=== PATIENT | male | born 1940 | race Caucasian/White ===

== ENCOUNTER → 2020-12-04 | Outpatient (CLI) | payer MEDICARE, BC ==
--- NOTE | 2020-12-04 13:54 | CT ---
EXAMINATION TYPE: CT abdomen pelvis w con DATE OF EXAM: 12/04/2020 COMPARISON: CT March 06, 2014 HISTORY: prostate CA CT DLP: 813.2 mGycm, Automated Exposure Control for Dose Reduction was Utilized. CONTRAST: CT scan of the abdomen and pelvis is performed with oral and with IV Contrast, patient injected with 100 mL of Isovue 300. FINDINGS: LUNG BASES: Coronary artery calcification is present. New Linear scarring or atelectasis right lung b ase. LIVER/GB: No significant abnormality is appreciated. PANCREAS: No significant abnormality is seen. SPLEEN: No significant abnormality is seen. ADRENALS: No significant abnormality is seen. KIDNEYS: There is benign 2.0 cm thin-walled cyst upper pole level left kidney series 5 image 22 sligh tly increased in size from prior study. Symmetric cortical medullary uptake and excretion without hyd ronephrosis seen bilaterally. Occasional subcentimeter low dense lesions throughout both kidneys. Kurt dder not greatly distended with mild wall thickening greatest anterior superior aspect similar to tara or. BOWEL: Oral contrast was not reached terminal ileum. No suspicious small or large bowel dilatation is present. Prominent diverticulosis in the left and sigmoid colon is redemonstrated. PROSTATE/SEMINAL VESICLES: There are 3 gold therapy seeds seen in normal-sized prostate redemonstrat ed. Poor fat plane separation along inferior aspect of bladder seen similar to prior. LYMPH NODES: No new greater than 1cm abdominal or pelvic lymph nodes are appreciated. OSSEOUS STRUCTURES: New diffuse sclerotic lesion involving the T11 vertebra. New disc calcification T 10-T11 level. New Sclerotic focus in the inferior right L2 vertebra coronal image 64. New slightly ex pansile sclerotic focus right L3 transverse process origin axial image 36. Some ossific fusion L4-L5 level. Bridging osteophytes L4-L5 and L5-S1 level. Moderate disc space narrowing and vacuum disc phen omenon with moderate to severe spurring L2-L3 and L3-L4 levels. OTHER: [id number] calcified plaque of the aorta extends into branch vessels.. IMPRESSION: New sclerotic osseous metastatic disease as detailed above.
--- NOTE | 2020-12-04 16:47 | NM ---
EXAMINATION TYPE: NM bone scan whole body DATE OF EXAM: 12/04/2020 COMPARISON: CT scan 12/04/2020 HISTORY: Prostate cancer, bone metastases Delayed whole-body scanning was performed following the injection of 22 mCi Tc 99m MDP. Images acqui red 3 hours post injection. FINDINGS: Abnormal uptake is present at T11 level corresponding to the sclerotic focus seen on CT, there is als o abnormal uptake present at the L3 vertebral body posterior elements on the right corresponding to t he sclerotic focus seen in the CT scan. Underlying degenerative disc changes are also present. Soft t issue uptake is normal. There is uptake within the feet, ankles, knees, shoulders, elbows, wrists and hands, sternoclavicular joints consistent with degenerative change. Cervical spine uptake is likely degenerative. IMPRESSION: Metastatic disease.
== END | disposition home or self-care (01) ==
LOC: RADNMMAIN 10:29
PROVIDERS: ATTEND Urology
DX: C79.51 Secondary malignant neoplasm of bone (principal); C61 Malignant neoplasm of prostate
CPT/HCPCS: 82565; 84520; 74177; 78306; 36415; A9503; Q9967

== ENCOUNTER 2024-06-06 10:41 | Inpatient (IN) | payer MEDICARE, BC ==
--- NOTE | 2024-06-06 12:04 | ED ---
Recheck HPI - General Chief Complaint: Recheck/Abnormal Lab/Rx Stated Complaint: Abnormal labs Time Seen by Provider: 06/06/24 11:06 Source: patient, family, RN notes reviewed Mode of arrival: ambulatory Limitations: no limitations - History of Present Illness Initial Comments: This is an 84-year-old male who presents to the emergency department for abno rmal labs. Family took the patient to see his PCP due to the patient having increasing weakness leading to multiple falls. He had lab work done demonstrating critically low sodium and was instructed to come to the emergency department. Family states that they have been trending his sodium because it has been steadily decreasing, however it has never been this low. They were told that it was 118 yesterday. Denies any nausea, vomiting, chest pain, or shortness of breath. MD Complaint: abnormal lab - Related Data Home Medications Medication Instructions Recorded Confirmed No Known Home Medications 06/06/24 06/06/24 Allergies Allergy/AdvReac Type Severity Reaction Status Date / Time No Known Allergies Allergy Verified 06/06/24 12:03 Review of Systems ROS Statement: Those systems with pertinent positive or pertinent negative responses have been documented in the HPI. ROS Other: All systems not noted in ROS Statement are negative. Past Medical History Past Medical History: Cancer, Hypertension, Osteoarthritis (OA) Additional Past Medical History / Comment(s): low vitamin d, UTI,PROSTATE CANCER-NO SX-HAD 40 RADIATION TX, HEMORRHOIDS, DUPRETRYNS CONTRACTURES. History of Any Multi-Drug Resistant Organisms: None Reported Additional Past Surgical History / Comment(s): COLONCOSPY POLYPECTOMT(BENIGN), R T CATARACT REMOVED,WINSTON HANDS SX -TENDONS CUT D/T DUPRETRYNS CONTRACTURES Past Anesthesia/Blood Transfusion Reactions: No Reported Reaction Past Psychological History: No Psychological Hx Reported Smoking Status: Former smoker Past Alcohol Use History: Daily Past Drug Use History: None Reported - Past Family History Father Family Medical History: Liver Disease Additional Family Medical History / Comment(s): ALCOHOLIC Mother Family Medical History: Hypertension Additional Family Medical History / Comment(s): LIVES TO BE IN HER 90'S General Exam Limitations: no limitations General appearance: alert, in no apparent distress Head exam: Present: atraumatic, normocephalic, normal inspection Respiratory exam: Present: normal lung sounds bilaterally. Absent: respiratory distress, wheezes, rales, rhonchi, stridor Cardiovascular Exam: Present: regular rate, normal rhythm, normal heart sounds. Absent: systolic murmur, diastolic murmur, rubs, gallop, clicks Neurological exam: Present: alert, oriented X3, CN II-XII intact Psychiatric exam: Present: normal affect, normal mood Skin exam: Present: warm, dry, intact, normal color. Absent: rash Course Vital Signs 06/06/24 06/06/24 06/06/24 11:01 13:00 16:35 Temperature 97.5 F L Pulse Rate 66 86 67 Respiratory 18 18 18 Rate Blood Pressure 103/72 126/84 106/60 O2 Sat by Pulse 97 98 98 Oximetry Medical Decision Making - Medical Decision Making This is an 84 year old male who presents to the emergency department for hyponatremia. Was pt. sent in by a medical professional or institution? @ -His PCP Did you speak to anyone other than the patient for history? @ -No Did you review nursing and triage notes? @ -Yes, and I agree, it is accurate with regards to the patient's symptoms. Were old charts reviewed? @ -Sodium from yesterday which was 118. Differential Diagnosis? @ -Medications, renal failure, cirrhosis, CHF, hypothyroidism, this is not meant to be an all-inclusive list. EKG interpreted by me (3pts min.)? @ -EKG interpreted by me demonstrating the following: Sinus rhythm. Ventricular rate 69 bpm, DE interval 303 ms, QRS duration 93 ms, QTc 418 ms. X-rays interpreted by me (1pt min.)? @ -Chest x-ray obtained. My interpretation identifies a patchy nodular density in the left upper lobe. CT interpreted by me (1pt min.)? @ -Not obtained U/S interpreted by me (1pt. min.)? @ -Not obtained What testing was considered but not performed? (CT, X-rays, U/S, labs)? Why? @ -None What meds were considered but not given? Why? @ -None Did you discuss the management of the patient with other professionals? @ -Yes, Dr. Polk, who accepts the patient for admission. Did you reconcile home meds? @ -Yes Was smoking cessation discussed for >3mins.? @ -No Was critical care preformed (if so, how long)? @ -No Were there social determinants of health that impacted care today? How? (Homelessness, low income, unemployed, alcoholism, drug addiction, transportation, low edu. Level, literacy, decrease access to med. care, retirement, rehab)? @ -No Was there de-escalation of care discussed even if they declined? (Discuss DNR or withdrawal of care, Hospice)? @ -No What co-morbidities impacted this encounter? (DM, HTN, Smoking, COPD, CAD, Cancer, CVA, Hep., AIDS, mental health diagnosis, sleep apnea, morbid obesity)? @ -None Was patient admitted / discharged? @ -Admitted. Lab work demonstrates hyponatremia with a sodium of 121. This is mildly improved when compared with yesterday when it was 118. Renal function is also impaired when compared with prior. Creatinine 1.39 and GFR 46. Urinalysis negative for signs of infection. Chest x-ray demonstrates a patchy nodular density in the left upper lobe that could be related to an early infiltrate or pulmonary nodule. Patient denies any URI symptoms, will defer further testing and treatment to admitting team. He was given a liter bolus of IV fluids in the emergency department and started on maintenance IV fluids. Patient admitted to medicine for hyponatremia with nephrology listed as consult. Case discussed with ED attending, Dr. Dickson. Undiagnosed new problem with uncertain prognosis? @ -None Drug Therapy requiring intensive monitoring for toxicity (Heparin, Nitro, Insulin, Cardizem)? @ -None Were any procedures done? @ -None Diagnosis/symptom? @ -Hyponatremia, weakness, frequent falls Acute, or Chronic, or Acute on Chronic? @ -Acute Uncomplicated (without systemic symptoms) or Complicated (systemic symptoms)? @ -Complicated Side effects of treatment? @ -None Exacerbation, Progression, or Severe Exacerbation] @ -Not applicable Poses a threat to life or bodily function? @ -Yes - Lab Data Result diagrams: 06/06/24 11:31 06/06/24 11:31 Lab Results 06/06/24 06/06/24 06/06/24 Range/Units 11:31 11:31 12:03 WBC 4.4 (3.8-10.6) k/uL RBC 2.77 L (4.30-5.90) m/uL Hgb 9.7 L (13.0-17.5) gm/dL Hct 27.1 L (39.0-53.0) % MCV 97.7 (80.0-100.0) fL MCH 34.8 (25.0-35.0) pg MCHC 35.7 (31.0-37.0) g/dL RDW 12.0 (11.5-15.5) % Plt Count 73 L (150-450) k/uL MPV 11.8 Neutrophils % Not Reportable Neutrophils % (Manual) 80 % Lymphocytes % Not Reportable Lymphocytes % (Manual) 12 % Monocytes % Not Reportable Monocytes % (Manual) 6 % Eosinophils % Not Reportable Eosinophils % (Manual) 2 % Basophils % Not Reportable Neutrophils # Not Reportable Neutrophils # (Manual) 3.52 (1.3-7.7) k/uL Lymphocytes # Not Reportable Lymphocytes # (Manual) 0.53 L (1.0-4.8) k/uL Monocytes # Not Reportable Monocytes # (Manual) 0.26 (0-1.0) k/uL Eosinophils # Not Reportable Eosinophils # (Manual) 0.09 (0-0.7) k/uL Basophils # Not Reportable Nucleated RBCs 0 (0-0) /100 WBC Manual Slide Review Performed Sodium 121 L (137-145) mmol/L Potassium 4.7 (3.5-5.1) mmol/L Chloride 87 L (98-107) mmol/L Carbon Dioxide 25 (22-30) mmol/L Anion Gap 9 mmol/L BUN 33 H (9-20) mg/dL Creatinine 1.39 H (0.66-1.25) mg/dL Est GFR (CKD-EPI)AfAm 54 (>60 ml/min/1.73 sqM) Est GFR (CKD-EPI)NonAf 46 (>60 ml/min/1.73 sqM) Glucose 97 (74-99) mg/dL Calcium 9.6 (8.4-10.2) mg/dL Phosphorus 3.1 (2.5-4.5) mg/dL Magnesium 1.8 (1.6-2.3) mg/dL Total Bilirubin 1.5 H (0.2-1.3) mg/dL AST 35 (17-59) U/L ALT 25 (4-49) U/L Alkaline Phosphatase 65 (38-126) U/L NT-Pro-B Natriuret Pep 1100 pg/mL Total Protein 6.2 L (6.3-8.2) g/dL Albumin 4.1 (3.5-5.0) g/dL TSH 1.480 (0.465-4.680) mIU/L Cortisol 17.0 (3.1-22.4) UG/DL Urine Color Colorless Urine Appearance Clear (Clear) Urine pH 5.0 (5.0-8.0) Ur Specific [place] 1.010 (1.001-1.035) Urine Protein Negative (Negative) Urine Glucose (UA) Negative (Negative) Urine Ketones Negative (Negative) Urine Blood Negative (Negative) Urine Nitrite Negative (Negative) Urine Bilirubin Negative (Negative) Urine Urobilinogen <2.0 (<2.0) mg/dL Ur Leukocyte Esterase Negative (Negative) - Radiology Data Radiology results: report reviewed, image reviewed Disposition Clinical Impression: Hyponatremia, Weakness, Frequent falls Disposition: ADMITTED IP TO THIS HOSP
[2024-06-06 12:07] LABS: ALT 25 U/L (4-49); AST 35 U/L (17-59); African American GFR (CKD) 54 (>60 ml/min/1.73 sqM); Albumin 4.1 g/dL (3.5-5.0); Alkaline Phosphatase 65 U/L (38-126); Anion Gap 9 mmol/L; Blood Urea Nitrogen 33 mg/dL (9-20); Calcium 9.6 mg/dL (8.4-10.2); Carbon Dioxide 25 mmol/L (22-30); Chloride 87 mmol/L (98-107); Glucose 97 mg/dL (74-99); Magnesium 1.8 mg/dL (1.6-2.3); Non-African American GFR(CKD) 46 (>60 ml/min/1.73 sqM); Phosphorus 3.1 mg/dL (2.5-4.5); Potassium 4.7 mmol/L (3.5-5.1); Sodium 121 mmol/L (137-145); Total Bilirubin 1.5 mg/dL (0.2-1.3); Total Protein 6.2 g/dL (6.3-8.2)
[2024-06-06 12:12] LABS: Appearance,Urine Clear (Clear); Bilirubin,Urine Negative (Negative); Blood,Urine Negative (Negative); Color,Urine Colorless; Glucose,Urine (UA) Negative (Negative); Ketones,Urine Negative (Negative); Leukocyte Esterase,Urine Negative (Negative); Nitrite,Urine Negative (Negative); Protein,Urine Negative (Negative); Urobilinogen,Urine <2.0 mg/dL (<2.0)
[2024-06-06 12:15] LABS: NT-Pro-B-Type Natriuretic Pept 1100 pg/mL
[2024-06-06 12:17] LABS: HCT 27.1 % (39.0-53.0); HGB 9.7 gm/dL (13.0-17.5); MCH 34.8 pg (25.0-35.0); MCHC 35.7 g/dL (31.0-37.0); MCV 97.7 fL (80.0-100.0); Mean Platelet Volume 11.8; RBC 2.77 m/uL (4.30-5.90); WBC 4.4 k/uL (3.8-10.6)
--- NOTE | 2024-06-06 12:17 | XR ---
EXAMINATION TYPE: XR chest 2V DATE OF EXAM: 06/06/2024 COMPARISON: I don't 2016 TECHNIQUE: PA and lateral views submitted. HISTORY: Weakness FINDINGS: No pneumothorax Heart size normal and no overt failure. Osseous structures demonstrate hypertrophic a nd degenerative changes of the spine. Sclerotic density overlying the right humerus likely related to small bone infarct or bone island. Stable from prior exam. Tiny pleural effusion on the right or ple ural thickening. Healing right-sided rib fractures. Vague right apical 7 mm nodule. Irregular patchy density in the left upper lobe somewhat nodular in appearance. IMPRESSION: 1. Patchy nodular density in the left upper lobe could be related to early infiltrate or pulmonary no dule. Recommend follow-up CT scan. [facility], , 06/06/2024 12:14 PM
[2024-06-06] MEDS: SODIUM CHLORIDE 0.9% 1,000 ML IV STA (12:33)
[2024-06-06 12:56] LABS: Eosinophils # (M) 0.09 k/uL (0-0.7); Lymphocytes # (M) 0.53 k/uL (1.0-4.8); Monocytes # (M) 0.26 k/uL (0-1.0); Neutrophils # (M) 3.52 k/uL (1.3-7.7); Neutrophils % (M) 80 %; Nucleated Red Blood Cells 0 /100 WBC (0-0); Platelet Count 73 k/uL (150-450); Total Cells Counted 100
[2024-06-06] MEDS ORDERED: ONDANSETRON 4 MG/2 ML VIAL IVP PRN (14:43)
[2024-06-06] MEDS ORDERED: HYDROcodone/APAP 5-325MG 1 EACH TAB PO PRN (14:43)
[2024-06-06] MEDS ORDERED: NALOXONE 0.4 MG/ML 1 ML VIAL IV PRN (14:43)
[2024-06-06] MEDS ORDERED: MORPHINE SULFATE 4 MG/ML SYRINGE IV PRN (14:43)
[2024-06-06] MEDS: SODIUM CHLORIDE 0.9% 1,000 ML IV SCH (16:16)
[2024-06-07 08:54] LABS: ALT 22 U/L (10-49); AST 28 U/L (14-35); Albumin 3.5 g/dL (3.8-4.9); Albumin/Globulin Ratio 2.33 Ratio (1.60-3.17); Alkaline Phosphatase 62 U/L (41-126); BUN/Creat Ratio 24.22 Ratio (12.00-20.00); Blood Urea Nitrogen 21.8 mg/dL (9.0-27.0); Calcium 8.6 mg/dL (8.7-10.3); Carbon Dioxide 22.8 mmol/L (21.6-31.8); Chloride 96 mmol/L (96-109); Globulin 1.5 g/dL (1.6-3.3); Glucose 93 mg/dL (70-110); Potassium 4.2 mmol/L (3.5-5.5); Sodium 127 mmol/L (135-145); Total Bilirubin 0.8 mg/dL (0.3-1.2)
[2024-06-07] MEDS: PANTOPRAZOLE 40 MG/10 ML VIAL IV SCH (09:07)
[2024-06-07 09:10] LABS: Basophils # (A) 0.03 X 10*3/uL (0.00-0.10); Basophils % (A) 1.1 %; Eosinophils # (A) 0.07 X 10*3/uL (0.04-0.35); Eosinophils % (A) 2.7 %; HCT 23.1 % (39.6-50.0); HGB 8.2 g/dL (13.0-17.0); Immature Grans, Automated 0 %; Lymphocytes # (A) 0.26 X 10*3/uL (0.90-5.00); Lymphocytes % (A) 9.8 %; MCH 33.6 pg (27.0-32.0); MCHC 35.5 g/dL (32.0-37.0); MCV 94.7 FL (80.0-97.0); Mean Platelet Volume 14.5 FL (9.5-12.2); Monocytes # (A) 0.38 X 10*3/uL (0.20-1.00); Monocytes % (A) 14.4 %; NRBC Per 100 WBC 0 X 10*3/uL (0.00-0.01); Platelet Count 59 X 10*3/uL (140-440); RBC 2.44 X 10*6/uL (4.40-5.60); RDW 12.4 % (11.5-14.5); WBC 2.64 X 10*3/uL (4.50-10.00)
--- NOTE | 2024-06-07 12:22 | P.NPCON ---
History of Present Illness - Reason for Consult hyponatremia - History of Present Illness patient is an 84-year-old male who was admitted to the hospital with history of increased weakness and multiple falls at home. Patient denied any significant nausea vomiting or diarrhea. He did state that he has had decreased oral intake. Underlying history of prostate cancer status post radiation therapy. No history of fever chills chest pain or shortness of breath. Serum sodium was 121 in the ER. Blood pressure was on the lower side with systolic around 106. It is of mercury. Patient has been started on normal saline and sodium has improved to 127. Serum creatinine was 1.39 on admission and decreased to 0.9 today. Past Medical History Past Medical History: Cancer, Hypertension, Osteoarthritis (OA) Additional Past Medical History / Comment(s): low vitamin d, UTI,PROSTATE CANCER-NO SX-HAD 40 RADIATION [place], HEMORRHOIDS, DUPRETRYNS CONTRACTURES. History of Any Multi-Drug Resistant Organisms: None Reported Additional Past Surgical History / Comment(s): COLONCOSPY POLYPECTOMT(BENIGN), R T CATARACT REMOVED,WINSTON HANDS SX -TENDONS CUT D/T DUPRETRYNS CONTRACTURES Past Anesthesia/Blood Transfusion Reactions: No Reported Reaction Past Psychological History: No Psychological Hx Reported Smoking Status: Former smoker Past Alcohol Use History: Daily Past Drug Use History: None Reported - Past Family History Father Family Medical History: Liver Disease Additional Family Medical History / Comment(s): ALCOHOLIC Mother Family Medical History: Hypertension Additional Family Medical History / Comment(s): LIVES TO BE IN HER 90'S Medications and Allergies Home Medications Medication Instructions Recorded Confirmed Type No Known Home Medications 06/06/24 06/06/24 History Allergies Allergy/AdvReac Type Severity Reaction Status Date / Time No Known Allergies Allergy Verified 06/06/24 12:03 Physical Exam Vitals: Vital Signs Temp Pulse Pulse Resp BP BP Pulse Ox 06/07/24 08:00 90 16 06/07/24 07:08 98.2 F 90 16 106/59 94 L 06/07/24 01:25 98.1 F 59 L 16 92/59 100 06/06/24 20:00 98.0 F 95 16 115/67 96 06/06/24 17:53 97.5 F L 83 16 105/67 100 06/06/24 16:35 67 18 106/60 98 06/06/24 13:00 86 18 126/84 98 Intake and Output 06/06/24 06/07/24 06/07/24 22:59 06:59 14:59 Intake Total 240 590 336 Output Total 400 Balance 240 190 336 Intake: Oral 240 590 336 Output: Urine 400 Other: Voiding Method Toilet Toilet Urinal Urinal # Bowel Movements 2 Weight 59.874 kg patient is awake, comfortable, no acute distress. 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 Hypovolemic hyponatremia improving with normal saline. 2. Acute kidney injury secondary to volume depletion, improved with IV hydration. 3. History of prostatic cancer status post radiation therapy, bony metastases noted on CT in 2020 4. Anemia r/o iron deficiency Plan: Continue IVF Repeat labs in am Check iron profile Thank you for the consultation. We will continue to follow the patient with you during his hospitalization.
[2024-06-07 14:18] LABS: % Iron Saturation 32.6 (15.00-50.00)
--- NOTE | 2024-06-07 17:47 | P.HPIM ---
History of Present Illness H&P Date: 06/06/24 Gene Palm, is an 84-year-old male, who presented to [facility] emergency room, with a chief complaint of increasing weakness and multiple falls, patient was seen by his primary care physician, he had evidence of hyponatremia, he was sent to emergency room for further evaluation. He was evaluated in the emergency room vital examination on presentation revealed a temperature of 97.5 pulse 66 respiration 18 blood pressure 103/72 pulse ox 97% on room air Laboratory data revealed a white blood count of 4.4 hemoglobin 9.7 platelet count 73 sodium 121 BUN 33 creatinine 1.39 serum osmolality 268 urine osmolality 288 Testing in the emergency room revealed chest x-ray revealed patchy nodular density in the left upper lobe, EKG revealed sinus rhythm with first-degree AV block. Patient was admitted to medical floor for further evaluation and treatment Past medical history is significant for history of hypertension, history of hyperlipidemia, patient stated that he was taking blood pressure medications and cholesterol medications, however he recently decided with his primary care physician to stop all medications, and he stated that his numbers has been doing well without any pills at home. Patient also has a known history of prostate cancer he received radiation therapy, he also has a known history of osteoarthritis and hemorrhoids. On review of systems patient is alert and oriented x 3 in no apparent distress there is no fever or chills no headache or dizziness no chest pain no shortness of breath no cough no nausea or vomiting no abdominal pain no diarrhea no blood in the stools no burning with urination no frequency or urgency and no hematuria. Past Medical History Past Medical History: Cancer, Hypertension, Osteoarthritis (OA) Additional Past Medical History / Comment(s): low vitamin d, UTI,PROSTATE CANCER-NO SX-HAD 40 RADIATION [place], HEMORRHOIDS, DUPRETRYNS CONTRACTURES. History of Any Multi-Drug Resistant Organisms: None Reported Additional Past Surgical History / Comment(s): COLONCOSPY POLYPECTOMT(BENIGN), RT CATARACT REMOVED,WINSTON HANDS SX -TENDONS CUT D/T DUPRETRYNS CONTRACTURES Past Anesthesia/Blood Transfusion Reactions: No Reported Reaction Past Psychological History: No Psychological Hx Reported Smoking Status: Former smoker Past Alcohol Use History: Daily Past Drug Use History: None Reported - Past Family History Father Family Medical History: Liver Disease Additional Family Medical History / Comment(s): ALCOHOLIC Mother Family Medical History: Hypertension Additional Family Medical History / Comment(s): LIVES TO BE IN HER 90'S Medications and Allergies Home Medications Medication Instructions Recorded Confirmed Type No Known Home Medications 06/06/24 06/06/24 History Allergies Allergy/AdvReac Type Severity Reaction Status Date / Time No Known Allergies Allergy Verified 06/06/24 12:03 Physical Exam Vitals: Vital Signs Temp Pulse Resp BP Pulse Ox 06/06/24 16:35 67 18 106/60 98 06/06/24 11:01 97.5 F L 66 18 103/72 97 Intake and Output 06/06/24 06/06/24 06/06/24 06:59 14:59 22:59 Other: Weight 59.874 kg In general patient is alert and oriented x 3 in no distress HEENT head normocephalic and atraumatic Neck is supple no JVD no goiter no lymphadenopathy no carotid bruit Chest examination is clear to auscultation no crackles no wheezing Cardiac exam reveals regular heart sounds S1 and S2 no gallops no murmurs Abdomen is soft nontender no organomegaly with normal bowel sounds Extremity exam reveals no edema no cyanosis or clubbing Neurological examination reveals no gross focal deficits Results CBC & Chem 7: 06/07/24 06:04 06/07/24 06:04 Labs: Abnormal Lab Results - Last 24 Hours (Table) 06/06/24 06/06/24 Range/Units 11:31 11:31 RBC 2.77 L (4.30-5.90) m/uL Hgb 9.7 L (13.0-17.5) gm/dL Hct 27.1 L (39.0-53.0) % Plt Count 73 L (150-450) k/uL Lymphocytes # (Manual) 0.53 L (1.0-4.8) k/uL Sodium 121 L (137-145) mmol/L Chloride 87 L (98-107) mmol/L BUN 33 H (9-20) mg/dL Creatinine 1.39 H (0.66-1.25) mg/dL Total Bilirubin 1.5 H (0.2-1.3) mg/dL Total Protein 6.2 L (6.3-8.2) g/dL Assessment and Plan Plan: Generalized weakness with multiple falls at home Dehydration with acute kidney injury Severe hyponatremia Evidence of nodular density in the left upper lobe, pulmonary consultation requested Underlying history of prostate cancer status post radiation therapy Underlying history of hypertension not requiring any medications recently Underlying history of hyperlipidemia Underlying history of osteoarthritis At this time patient is admitted to medical floor He was started on IV normal saline in the emergency room For DVT prophylaxis I will order subcu Lovenox Nephrology consultation was requested I will add pulmonary consultation in regard to left upper lobe nodular density Will continue to follow closely
[2024-06-07] MEDS: ENOXAPARIN 40 MG/0.4 ML SYRINGE SQ SCH (18:42)
[2024-06-07] MEDS ORDERED: RX INFO: IV CONTRAST WAS GIVEN 1 EACH MISC MISCELLANE PRN (19:47)
--- NOTE | 2024-06-07 19:47 | P.CNPUL ---
History of Present Illness Consult date: 06/07/24 Reason for consult: abnormal CXR/CT History of present illness: 84-year-old male patient presented to the hospital because of generalized weakness and falls. In the emergency department, the patient was found to have hyponatremia and his sodium level was calculated to be at 122 and subsequently dropped down to 118. Based on that, the patient was seen by nephrology. The patient was started on normal saline and the most recent sodium level is at 127. Serum creatinine was 1.39, admission and dropped down to 0.9. As such, the patient was considered to have a hypovolemic hyponatremia improved with saline and the acute kidney injury is also improved. Is noted prostate cancer treated by radiation therapy in the past. He has history of chronic alcoholism and he was hospitalized back in 2016 for a parapneumonic effusion requiring a pigtail catheter and subsequent chest tube insertion. Back then, the microorganism was positive for Pseudomonas aeruginosa as cultures from the sputum. The chest x- ray was done in the emergency department showed a patchy nodular density in the left upper lobe and CAT scan of the chest was recommended. Patient is currently calm and comfortable nausea at rate of 75 cc an hour. He is on room air oxygen with a pulse ox of 97%. Afebrile hemodynamically stable. He is also known to have other comorbidities including hypertension hyperlipidemia and chronic anemia. Review of Systems Constitutional: Reports fatigue, Reports weakness Eyes: denies as per HPI, denies blurred vision, denies bulging eye, denies decreased vision, denies diplopia, denies discharge, denies dry eye, denies irritation, denies itching, denies pain, denies photophobia, denies loss of peripheral vision, denies loss of vision, denies tunnel vision/blind spots Ears: deny: decreased hearing, ear discharge, earache, tinnitus Ears, nose, mouth and throat: Reports as per HPI Breasts: absent: as per HPI, gynecomastia Cardiovascular: Reports decreased exercise tolerance Respiratory: Reports as per HPI Gastrointestinal: Reports as per HPI Genitourinary: Reports as per HPI Musculoskeletal: Reports as per HPI Musculoskeletal: absent: ankle pain, ankle stiffness, ankle swelling, as per HPI, elbow pain, elbow stiffness, elbow swelling, foot pain, foot stiffness, foot swelling, hand pain, hand stiffness, hand swelling, hip pain, hip st iffness, hip swelling, knee pain, knee stiffness, knee swelling, shoulder pain, shoulder stiffness, shoulder swelling, wrist pain, wrist stiffness, wrist swelling Integumentary: Reports as per HPI Neurological: Reports weakness Psychiatric: Reports as per HPI Endocrine: Reports fatigue Hematologic/Lymphatic: Reports as per HPI Allergic/Immunologic: Reports as per HPI Past Medical History Past Medical History: Cancer, Hypertension, Osteoarthritis (OA) Additional Past Medical History / Comment(s): low vitamin d, UTI,PROSTATE CANCER-NO SX-HAD 40 RADIATION TX, HEMORRHOIDS, DUPRETRYNS CONTRACTURES. History of Any Multi-Drug Resistant Organisms: None Reported Additional Past Surgical History / Comment(s): COLONCOSPY POLYPECTOMT(BENIGN), RT CATARACT REMOVED,WINSTON HANDS SX -TENDONS CUT D/T DUPRETRYNS CONTRACTURES Past Anesthesia/Blood Transfusion Reactions: No Reported Reaction Past Psychological History: No Psychological Hx Reported Smoking Status: Former smoker Past Alcohol Use History: Daily Past Drug Use History: None Reported - Past Family History Father Family Medical History: Liver Disease Additional Family Medical History / Comment(s): ALCOHOLIC Mother Family Medical History: Hypertension Additional Family Medical History / Comment(s): LIVES TO BE IN HER 90'S Medications and Allergies Home Medications Medication Instructions Recorded Confirmed Type No Known Home Medications 06/06/24 06/06/24 History Allergies Allergy/AdvReac Type Severity Reaction Status Date / Time No Known Allergies Allergy Verified 06/06/24 12:03 Physical Exam Vitals: Vital Signs Temp Pulse Resp BP Pulse Ox 06/07/24 13:07 97.4 F L 62 16 125/71 97 06/07/24 08:00 90 16 06/07/24 07:08 98.2 F 90 16 106/59 94 L 06/07/24 01:25 98.1 F 59 L 16 92/59 100 06/06/24 20:00 98.0 F 95 16 115/67 96 Intake and Output 06/07/24 06/07/24 06/07/24 06:59 14:59 22:59 Intake Total 874 085 9414 Output Total 400 Balance 058 964 0428 Intake: Oral 360 914 9480 Output: Urine 400 Other: Voiding Method Toilet Urinal # Voids 5 # Bowel Movements 2 3 Weight 59.874 kg The patient appeared well nourished and normally developed. Vital signs as documented. Head exam is unremarkable. No scleral icterus or corneal arcus noted. Neck is without jugular venous distension, thyromegaly, or carotid bruits. Carotid upstrokes are brisk bilaterally. Lungs are clear to auscultation and percussion. Cardiac exam reveals the PMI to be normally sized and situated. Rhythm is regular. First and second heart sounds normal. No murmurs, rubs or gallops. Abdominal exam reveals normal bowel sounds, no masses, no organomegaly and no aortic enlargement. Extremities are nonedematous and both femoral and pedal pulses are normal. Examination of the skin revealed no evidence of significant rashes, suspicious appearing nevi or other concerning lesions. Neurologically, the patient is awake and alert and the patient does not have any focal neurological deficit. Cranial nerves are essentially intact. Results - Laboratory Findings CBC and BMP: 06/07/24 06:04 06/07/24 06:04 ABG WBC 2.64 X 10*3/uL (4.50-10.00) L 06/07/24 06:04 RBC 2.44 X 10*6/uL (4.40-5.60) L 06/07/24 06:04 Hgb 8.2 g/dL (13.0-17.0) L 06/07/24 06:04 Hct 23.1 % (39.6-50.0) L 06/07/24 06:04 MCV 94.7 FL (80.0-97.0) 06/07/24 06:04 MCH 33.6 pg (27.0-32.0) H 06/07/24 06:04 MCHC 35.5 g/dL (32.0-37.0) 06/07/24 06:04 RDW 12.4 % (11.5-14.5) 06/07/24 06:04 Plt Count 59 X 10*3/uL (140-440) L 06/07/24 06:04 MPV 14.5 FL (9.5-12.2) H 06/07/24 06:04 Immature Gran % (Auto) 0 % 06/07/24 06:04 Absolute Nucleated RBC 0 % 06/07/24 06:04 Neutrophils % 72.0 % 06/07/24 06:04 Neutrophils % (Manual) 80 % 06/06/24 11:31 Lymphocytes % 9.8 % 06/07/24 06:04 Lymphocytes % (Manual) 12 % 06/06/24 11:31 Monocytes % 14.4 % 06/07/24 06:04 Monocytes % (Manual) 6 % 06/06/24 11:31 Eosinophils % 2.7 % 06/07/24 06:04 Eosinophils % (Manual) 2 % 06/06/24 11:31 Basophils % 1.1 % 06/07/24 06:04 Immature Gran # 0 X 10*3/uL (0.00-0.04) 06/07/24 06:04 Neutrophils # 1.90 X 10*3/uL (1.80-7.70) 06/07/24 06:04 Neutrophils # (Manual) 3.52 k/uL (1.3-7.7) 06/06/24 11:31 Lymphocytes # 0.26 X 10*3/uL (0.90-5.00) L 06/07/24 06:04 Lymphocytes # (Manual) 0.53 k/uL (1.0-4.8) L 06/06/24 11:31 Monocytes # 0.38 X 10*3/uL (0.20-1.00) 06/07/24 06:04 Monocytes # (Manual) 0.26 k/uL (0-1.0) 06/06/24 11:31 Eosinophils # 0.07 X 10*3/uL (0.04-0.35) 06/07/24 06:04 Eosinophils # (Manual) 0.09 k/uL (0-0.7) 06/06/24 11:31 Basophils # 0.03 X 10*3/uL (0.00-0.10) 06/07/24 06:04 Nucleated RBCs 0 /100 WBC (0-0) 06/06/24 11:31 NRBC/100 WBC Diff 0 X 10*3/uL (0.00-0.01) 06/07/24 06:04 Manual Slide Review Performed 06/06/24 11:31 Immature Plt Fraction 22.0 % (1.1-6.1) H 06/07/24 06:04 Sodium 127 mmol/L (135-145) L 06/07/24 06:04 Potassium 4.2 mmol/L (3.5-5.5) 06/07/24 06:04 Chloride 96 mmol/L (96-109) 06/07/24 06:04 Carbon Dioxide 22.8 mmol/L (21.6-31.8) 06/07/24 06:04 Anion Gap 8.20 mmol/L (4.00-12.00) 06/07/24 06:04 BUN 21.8 mg/dL (9.0-27.0) 06/07/24 06:04 Creatinine 0.9 mg/dL (0.6-1.5) 06/07/24 06:04 Est GFR (CKD-EPI) 84 (>=60) 06/07/24 06:04 Est GFR (CKD-EPI)AfAm 54 (>60 ml/min/1.73 sqM) 06/06/24 11:31 Est GFR (CKD-EPI)NonAf 46 (>60 ml/min/1.73 sqM) 06/06/24 11:31 BUN/Creatinine Ratio 24.22 Ratio (12.00-20.00) H 06/07/24 06:04 Glucose 93 mg/dL (70-110) 06/07/24 06:04 Osmolality 268 mOsm/kg (275-295) L 06/06/24 11:31 Calcium 8.6 mg/dL (8.7-10.3) L 06/07/24 06:04 Phosphorus 3.1 mg/dL (2.5-4.5) 06/06/24 11:31 Magnesium 1.8 mg/dL (1.6-2.3) 06/06/24 11:31 Iron 74 UG/DL (65-175) 06/07/24 06:04 TIBC 227 UG/DL (228-460) L 06/07/24 06:04 % Saturation 32.60 (15.00-50.00) 06/07/24 06:04 Transferrin 162.0 mg/dL (204.0-354.0) L 06/07/24 06:04 Total Bilirubin 0.8 mg/dL (0.3-1.2) 06/07/24 06:04 AST 28 U/L (14-35) 06/07/24 06:04 ALT 22 U/L (10-49) 06/07/24 06:04 Alkaline Phosphatase 62 U/L (41-126) 06/07/24 06:04 NT-Pro-B Natriuret Pep 1100 pg/mL 06/06/24 11:31 Total Protein 5.0 g/dL (6.2-8.2) L 06/07/24 06:04 Albumin 3.5 g/dL (3.8-4.9) L 06/07/24 06:04 Globulin 1.5 g/dL (1.6-3.3) L 06/07/24 06:04 Albumin/Globulin Ratio 2.33 Ratio (1.60-3.17) 06/07/24 06:04 TSH 1.480 mIU/L (0.465-4.680) 06/06/24 11:31 Cortisol 17.0 UG/DL (3.1-22.4) 06/06/24 11:31 Urine Color Colorless 06/06/24 12:03 Urine Appearance Clear (Clear) 06/06/24 12:03 Urine pH 5.0 (5.0-8.0) 06/06/24 12:03 Ur Specific [place] 1.010 (1.001-1.035) 06/06/24 12:03 Urine Protein Negative (Negative) 06/06/24 12:03 Urine Glucose (UA) Negative (Negative) 06/06/24 12:03 Urine Ketones Negative (Negative) 06/06/24 12:03 Urine Blood Negative (Negative) 06/06/24 12:03 Urine Nitrite Negative (Negative) 06/06/24 12:03 Urine Bilirubin Negative (Negative) 06/06/24 12:03 Urine Urobilinogen <2.0 mg/dL (<2.0) 06/06/24 12:03 Ur Leukocyte Esterase Negative (Negative) 06/06/24 12:03 Urine Osmolality 288 mOsm/kg (400-1100) L 06/06/24 12:03 Abnormal lab findings: Abnormal Labs 06/06/24 06/06/24 06/06/24 11:31 11:31 12:03 WBC RBC 2.77 L Hgb 9.7 L Hct 27.1 L MCH Plt Count 73 L MPV Lymphocytes # Lymphocytes # (Manual) 0.53 L Immature Plt Fraction Sodium 121 L Chloride 87 L BUN 33 H Creatinine 1.39 H BUN/Creatinine Ratio Osmolality 268 L Calcium TIBC Transferrin Total Bilirubin 1.5 H Total Protein 6.2 L Albumin Globulin Urine Osmolality 288 L 06/07/24 06/07/24 06/07/24 06:04 06:04 06:04 WBC 2.64 L RBC 2.44 L Hgb 8.2 L Hct 23.1 L MCH 33.6 H Plt Count 59 L MPV 14.5 H Lymphocytes # 0.26 L Lymphocytes # (Manual) Immature Plt Fraction 22.0 H Sodium 127 L Chloride BUN Creatinine BUN/Creatinine Ratio 24.22 H Osmolality Calcium 8.6 L TIBC 227 L Transferrin 162.0 L Total Bilirubin Total Protein 5.0 L Albumin 3.5 L Globulin 1.5 L Urine Osmolality - Diagnostic Findings Chest x-ray: image reviewed Assessment and Plan Plan: Nodular opacity/infiltrate in the left upper lobe that needs further investiga tion. Currently on room air oxygen. No signs of pneumonia Hypovolemic hyponatremia, improving sodium levels at 127 while receiving normal saline Prostate cancer. By radiation therapy Acute kidney injury, recovered Hypertension Hyperlipidemia Previous history of pneumonia with a parapneumonic effusion requiring drainage procedure back in 2016 (Pseudomonas) History of alcoholism Neutropenia Anemia of chronic disease Thrombocytopenia Plan Management of hyponatremia per nephrology, sodium is improving Renal function has normalized Obtain a contrast-enhanced CAT scan of the chest Will follow
--- NOTE | 2024-06-07 22:07 | CT ---
EXAMINATION TYPE: CT chest w con CT DLP: 347.5 mGycm, Automated exposure control for dose reduction was used. DATE OF EXAM: 06/07/2024 9:49 PM COMPARISON: Chest radiograph from same day. Multiple CTs of the chest with most recent on . CLINICAL INDICATION: Male, 84 years old with history of history of mass ; PHH, history of mass TECHNIQUE: Multiple axial images were obtained through the chest. Sagittal and coronal reformats were created for review. MIP was performed on a separate workstation. Contrast used:100ml mL of Isovue 300 with IV Contrast (None if empty) Oral contrast used: (None if empty) FINDINGS: LUNGS/ PLEURA: Left lower lobe 12 mm pulmonary nodule not seen on prior in 2016.. No focal consolida tion, pneumothorax or pleural effusion. The changes. Mild streaky edema in the lung bases. AIRWAY: Patent and unremarkable. HEART: Size within normal limits. Coronary artery atherosclerosis. Aortic valve calcifications presen t. MEDIASTINUM: No gross evidence of adenopathy. VASCULATURE: No aortic aneurysm. No filling defect in the pulmonary arterial vasculature to suggest pulmonary embolus. No evidence for aneurysm or dissection MUSCULOSKELETAL: No acute osseous abnormalities complete sclerosis of the T12 vertebral body which stanley s progressed from 12/04/2020 exam. SOFT TISSUES/LYMPH NODES: Unremarkable. LOWER NECK: No significant findings. UPPER ABDOMEN: No significant findings. IMPRESSION: Left lower lobe 12 mm pulmonary nodule given history of mass lesions concerning for metastatic diseas e. Additionally there is complete sclerosis of the vertebral body at T12. Not seen on prior on 021. Further workup with PET/CT may be of benefit. [facility], , 06/07/2024 10:05 PM
--- NOTE | 2024-06-08 10:38 | P.PN ---
Subjective Progress Note Date: 06/08/24 Gene Palm, is an 84-year-old male, who presented to [facility] emergency room, with a chief complaint of increasing weakness and multiple falls, patient was seen by his primary care physician, he had evidence of hyponatremia, he was sent to emergency room for further evaluation. He was evaluated in the emergency room vital examination on presentation revealed a temperature of 97.5 pulse 66 respiration 18 blood pressure 103/72 pulse ox 97% on room air Laboratory data revealed a white blood count of 4.4 hemoglobin 9.7 platelet count 73 sodium 121 BUN 33 creatinine 1.39 serum osmolality 268 urine osmolality 288 Testing in the emergency room revealed chest x-ray revealed patchy nodular density in the left upper lobe, EKG revealed sinus rhythm with first-degree AV block. Patient was admitted to medical floor for further evaluation and treatment Past medical history is significant for history of hypertension, history of hyperlipidemia, patient stated that he was taking blood pressure medications and cholesterol medications, however he recently decided with his primary care physician to stop all medications, and he stated that his numbers has been doing well without any pills at home. Patient also has a known history of prostate cancer he received radiation therapy, he also has a known history of osteoarthritis and hemorrhoids. On review of systems patient is alert and oriented x 3 in no apparent distress there is no fever or chills no headache or dizziness no chest pain no shortness of breath no cough no nausea or vomiting no abdominal pain no diarrhea no blood in the stools no burning with urination no frequency or urgency and no hematuria. On 06/08/2024 patient is alert and oriented x 3. CT scan was completed yesterday awaiting pulmonary review. Patient also noted to have hematuria that patient reports is new for him. Will consult urology services and order ultrasound of bladder and kidneys. Patient daughter also on phone during exam requesting that patient continue to stay in hospital until workup is completed. Awaiting lab work. Patient denies any chest pain or shortness of breath. Patient denies nausea vomiting or diarrhea. Patient denies any urinary burning or frequency. Current vital signs temp 98.0, heart 64, respiratory rate 16, b lood pressure 123/74 with pulse ox of 100% on room air Objective - Vital Signs Vital signs: Vital Signs Temp 98.0 F 06/08/24 07:11 Pulse 64 06/08/24 07:11 Resp 16 06/08/24 07:11 BP 123/74 06/08/24 07:11 Pulse Ox 100 06/08/24 07:11 FiO2 Intake & Output 06/07/24 06/08/24 06/08/24 18:59 06:59 18:59 Intake Total 1774 600 Output Total 500 Balance 1774 100 Weight 59.874 kg Intake: IV 10 Invasive Line 1 10 Oral 1774 590 Output: Urine 500 Other: Voiding Method Toilet Toilet Urinal Urinal # Voids 5 3 # Bowel Movements 3 - Exam In general patient is alert and oriented x 3 in no distress HEENT head normocephalic and atraumatic Neck is supple no JVD no goiter no lymphadenopathy no carotid bruit Chest examination is clear to auscultation no crackles no wheezing Cardiac exam reveals regular heart sounds S1 and S2 no gallops no murmurs Abdomen is soft nontender no organomegaly with normal bowel sounds Extremity exam reveals no edema no cyanosis or clubbing Neurological examination reveals no gross focal deficits - Labs CBC & Chem 7: 06/07/24 06:04 06/07/24 06:04 Labs: Abnormal Lab Results - Last 24 Hours (Table) 06/07/24 Range/Units 06:04 TIBC 227 L (228-460) UG/DL Transferrin 162.0 L (204.0-354.0) mg/dL Assessment and Plan Plan: Generalized weakness with multiple falls at home Dehydration with acute kidney injury Severe hyponatremia Hematuria. Urology services consulted ultrasound ordered Evidence of nodular density in the left upper lobe, pulmonary consultation requested Underlying history of prostate cancer status post radiation therapy Underlying history of hypertension not requiring any medications recently Underlying history of hyperlipidemia Underlying history of osteoarthritis At this time patient is admitted to medical floor He was started on IV normal saline in the emergency room For DVT prophylaxis I will order subcu Lovenox Nephrology consultation was requested I will add pulmonary consultation in regard to left upper lobe nodular density Will continue to follow closely
--- NOTE | 2024-06-08 11:00 | P.GSCN ---
History of Present Illness Consult date: 06/08/24 History of present illness: 84-year-old gentleman in the hospital with falls and weakness. He has hyponatremia. He is also anemic. We're asked to see the patient because apparently there has been hematuria and he has a history of prostate cancer status post radiation therapy. Patient urine is clear on analysis. He is anemic. There are no PSAs on the chart.upon interviewing the patient he states that he does have a history of prostate cancer. He is treated by Dr.Kamer saleem 10 years ago. He had radiation therapy at [facility]. He now follows with in our office for LHRH shots. He states that he is due for one any time soon. He states that he thinks his last PSA is around 5 a. He has had hematuria in the past but not until the most recent void. As mentioned above his initial urine was clear. He denies dysuria frequency. uniquely states that he thinks his hematuria is due to what he eats. Review of Systems All systems: negative - Constitutional Denies fever, Denies weight loss - EENT Eyes: denies blurred vision Ears, nose, mouth and throat: Denies dysphagia - Cardiovascular Denies chest pain, Denies shortness of breath - Respiratory Denies cough, Denies 7 - Gastrointestinal Reports as per HPI - Genitourinary Denies dysuria, Denies hematuria - Integumentary Denies rash, Denies unusual bruising - Neurological Denies headaches, Denies syncope - Hematologic/Lymphatic Denies easy bleeding, Denies easy bruising Past Medical History Past Medical History: Cancer, Hypertension, Osteoarthritis (OA) Additional Past Medical History / Comment(s): low vitamin d, UTI,PROSTATE CANCER-NO SX-HAD 40 RADIATION TX, HEMORRHOIDS, DUPRETRYNS CONTRACTURES. History of Any Multi-Drug Resistant Organisms: None Reported Additional Past Surgical History / Comment(s): COLONCOSPY POLYPECTOMT(BENIGN), R T CATARACT REMOVED,WINSTON HANDS SX -TENDONS CUT D/T DUPRETRYNS CONTRACTURES Past Anesthesia/Blood Transfusion Reactions: No Reported Reaction Past Psychological History: No Psychological Hx Reported Smoking Status: Former smoker Past Alcohol Use History: Daily Past Drug Use History: None Reported - Past Family History Father Family Medical History: Liver Disease Additional Family Medical History / Comment(s): ALCOHOLIC Mother Family Medical History: Hypertension Additional Family Medical History / Comment(s): LIVES TO BE IN HER 90'S Medications and Allergies Home Medications Medication Instructions Recorded Confirmed Type No Known Home Medications 06/06/24 06/06/24 History Allergies Allergy/AdvReac Type Severity Reaction Status Date / Time No Known Allergies Allergy Verified 06/06/24 12:03 Surgical - Exam Vital Signs Temp Pulse Resp BP Pulse Ox 97.5 F L 66 18 103/72 97 06/06/24 11:01 06/06/24 11:01 06/06/24 11:01 06/06/24 11:01 06/06/24 11:01 - General well developed, well nourished, no distress - Eyes normal ocular movement, no icteric - ENT no hearing loss, no congestion - Neck no masses, trachea midline - Respiratory normal respiratory effort, clear to auscultation - Abdomen Abdomen: soft, non tender, no guarding, no rigid, no rebound - Integumentary no rash, no abnormal pigmentation - Neurologic no disoriented, no combative - Psychiatric oriented to time, oriented to person, oriented to place, speech is normal, memory intact Results - Labs 06/07/24 06:04 06/07/24 06:04 Abnormal Lab Results - Last 24 Hours (Table) 06/07/24 Range/Units 06:04 TIBC 227 L (228-460) UG/DL Transferrin 162.0 L (204.0-354.0) mg/dL Assessment and Plan Assessment: impression: Anemia is not related to the gross hematuria. Gross hematuria at last urine void. No evidence of infection. Prostate cancers status post radiation therapy on present LHRH therapy. Recommendations: The urologic standpoint amount of blood is not significantly to do any immediate evaluation. He should have a cystoscopy at the time of his next LHRH treatment in the near future at our office. Time with Patient: Greater than 30
[2024-06-08 11:06] LABS: ALT 28 U/L (10-49); AST 33 U/L (14-35); Albumin/Globulin Ratio 2.11 Ratio (1.60-3.17); Alkaline Phosphatase 69 U/L (41-126); BUN/Creat Ratio 17.62 Ratio (12.00-20.00); Blood Urea Nitrogen 14.1 mg/dL (9.0-27.0); Calcium 8.8 mg/dL (8.7-10.3); Carbon Dioxide 22.4 mmol/L (21.6-31.8); Chloride 96 mmol/L (96-109); Globulin 1.9 g/dL (1.6-3.3); Glucose 92 mg/dL (70-110); Potassium 3.9 mmol/L (3.5-5.5); Sodium 128 mmol/L (135-145); Total Protein 5.9 g/dL (6.2-8.2)
--- NOTE | 2024-06-08 11:31 | US ---
EXAMINATION TYPE: US kidneys/renal and bladder DATE OF EXAM: 06/08/2024 COMPARISON: CT CLINICAL INDICATION: Male, 84 years old with history of Hematuria; Recent hematuria, pt has h/o prost ate CA and is currently on radiation TECHNIQUE: Grayscale and color Doppler imaging of the bilateral kidneys and urinary bladder: FINDINGS: EXAM MEASUREMENTS: Right Kidney: 10.7 x 4.6 x 5.0 cm Left Kidney: 9.1 x 4.8 x 4.5 cm Right Kidney: No hydronephrosis or masses seen Left Kidney: Limited views due to overlying bowel content- no evidence of hydro Bladder: wnl Bilateral Jets seen: No There is no evidence for hydronephrosis at this point in time. No nephrolithiasis is seen. No belen s are identified. The urinary bladder is anechoic. Renal cortical thickness and echogenicity maintai stephanie. No bladder calculi.. IMPRESSION: No hydronephrosis or nephrolithiasis. [facility], , 06/08/2024 11:29 AM
[2024-06-08 11:35] LABS: Basophils # (A) 0.06 X 10*3/uL (0.00-0.10); Basophils % (A) 1.5 %; Eosinophils # (A) 0.13 X 10*3/uL (0.04-0.35); Eosinophils % (A) 3.4 %; HCT 27.4 % (39.6-50.0); HGB 9.6 g/dL (13.0-17.0); Immature Platelet Fraction 19.7 % (1.1-6.1); Lymphocytes # (A) 0.35 X 10*3/uL (0.90-5.00); MCH 34.4 pg (27.0-32.0); MCV 98.2 FL (80.0-97.0); Mean Platelet Volume 14.8 FL (9.5-12.2); Monocytes # (A) 0.45 X 10*3/uL (0.20-1.00); Monocytes % (A) 11.6 %; NRBC Per 100 WBC 0 X 10*3/uL (0.00-0.01); Neutrophils # (A) 2.88 X 10*3/uL (1.80-7.70); Neutrophils % (A) 74.2 %; Platelet Count 67 X 10*3/uL (140-440); RBC 2.79 X 10*6/uL (4.40-5.60); RDW 12.5 % (11.5-14.5); WBC 3.88 X 10*3/uL (4.50-10.00)
--- NOTE | 2024-06-08 13:15 | P.PN ---
Subjective patient is seen for follow-up for hyponatremia. Currently maintained on normal saline and serum sodium has improved to 128. No significant complaints. Renal function has improved with creatinine down to 0.8 mg/dL. Objective - Vital Signs Vital signs: Vital Signs Temp 98.2 F 06/08/24 12:47 Pulse 67 06/08/24 12:47 Resp 17 06/08/24 12:47 BP 113/75 06/08/24 12:47 Pulse Ox 98 06/08/24 12:47 FiO2 Intake & Output 06/07/24 06/08/24 06/08/24 18:59 06:59 18:59 Intake Total 1774 600 Output Total 500 Balance 1774 100 Weight 59.874 kg Intake: IV 10 Invasive Line 1 10 Oral 1774 590 Output: Urine 500 Other: Voiding Method Toilet Toilet Urinal Urinal # Voids 5 3 # Bowel Movements 3 - Exam patient is awake, comfortable, no acute distress. Examination of the heart S1 and S2 Examination of the lungs bilateral breath sounds are heard Abdomen is soft nontender Examination of lower extremity shows no significant edema COOKER TENDER exam grossly intact - Labs CBC & Chem 7: 06/08/24 05:33 06/08/24 05:33 Labs: Abnormal Lab Results - Last 24 Hours (Table) 06/07/24 06/08/24 06/08/24 Range/Units 06:04 05:33 05:33 WBC 3.88 L (4.50-10.00) X 10*3/uL RBC 2.79 L (4.40-5.60) X 10*6/uL Hgb 9.6 L (13.0-17.0) g/dL Hct 27.4 L (39.6-50.0) % MCV 98.2 H (80.0-97.0) FL MCH 34.4 H (27.0-32.0) pg Plt Count 67 L (140-440) X 10*3/uL MPV 14.8 H (9.5-12.2) FL Lymphocytes # 0.35 L (0.90-5.00) X 10*3/uL Immature Plt Fraction 19.7 H (1.1-6.1) % Sodium 128 L (135-145) mmol/L TIBC 227 L (228-460) UG/DL Transferrin 162.0 L (204.0-354.0) mg/dL Total Protein 5.9 L (6.2-8.2) g/dL Assessment and Plan Assessment: 1. Hypovolemic hyponatremia improving with normal saline. 2. Acute kidney injury secondary to volume depletion, improved with IV hydratio n. 3. History of prostatic cancer status post radiation therapy, bony metastases noted on CT in 2020 4. Anemia , iron replete Plan: Continue IVF Repeat labs in am sodium chloride tab 1
[2024-06-08] MEDS: SODIUM CHLORIDE TAB 1 GM TAB PO STA (14:09)
--- NOTE | 2024-06-08 14:28 | P.PN ---
Subjective Progress Note Date: 06/08/24 84-year-old male patient presented to the hospital because of generalized weakness and falls. In the emergency department, the patient was found to have hyponatremia and his sodium level was calculated to be at 122 and subsequently dropped down to 118. Based on that, the patient was seen by nephrology. The patient was started on normal saline and the most recent sodium level is at 127. Serum creatinine was 1.39, admission and dropped down to 0.9. As such, the patient was considered to have a hypovolemic hyponatremia improved with saline and the acute kidney injury is also improved. Is noted prostate cancer treated by radiation therapy in the past. He has history of chronic alcoholism and he was hospitalized back in 2016 for a parapneumonic effusion requiring a pigtail catheter and subsequent chest tube insertion. Back then, the microorganism was positive for Pseudomonas aeruginosa as cultures from the sputum. The chest x- ray was done in the emergency department showed a patchy nodular density in the left upper lobe and CAT scan of the chest was recommended. Patient is currently calm and comfortable nausea at rate of 75 cc an hour. He is on room air oxygen with a pulse ox of 97%. Afebrile hemodynamically stable. He is also known to have other comorbidities including hypertension hyperlipidemia and chronic anemia. On 06/08/2024, the patient is being seen for a follow-up. Noted the patient sodium level is improving and is currently up to 128. Renal function is also im proved and the creatinine is down to 0.8. The patient has no specific complaints. The patient remains on room air oxygen with a pulse ox of 99%. He is afebrile. Based on the chest x-ray findings, a CAT scan of the chest was obtained and I reviewed the CAT scan of the chest and the patient is a 12 mm pulmonary nodule in the left lower lobe. No airspace disease. No consolidation. No pleural effusion. Some atelectatic changes lung base bilaterally. Based on his previous history of prostatic cancer and smoking, this nodule needs to be further followed up on outpatient basis. A PET/CT may be also useful to assess the metabolic activity of this left lower lobe pulmonary nodule. Objective - Vital Signs Vital signs: Vital Signs Temp 98.0 F 06/08/24 07:11 Pulse 64 06/08/24 07:11 Resp 16 06/08/24 07:11 BP 123/74 06/08/24 07:11 Pulse Ox 100 06/08/24 07:11 FiO2 Intake & Output 06/07/24 06/08/24 06/08/24 18:59 06:59 18:59 Intake Total 1774 600 Output Total 500 Balance 1774 100 Weight 59.874 kg Intake: IV 10 Invasive Line 1 10 Oral 1774 590 Output: Urine 500 Other: Voiding Method Toilet Toilet Urinal Urinal # Voids 5 3 # Bowel Movements 3 - Exam The patient appeared well nourished and normally developed. Vital signs as documented. Head exam is unremarkable. No scleral icterus or corneal arcus noted. Neck is without jugular venous distension, thyromegaly, or carotid bruits. Carotid upstrokes are brisk bilaterally. Lungs are clear to auscultation and percussion. Cardiac exam reveals the PMI to be normally sized and situated. Rhythm is regular. First and second heart sounds normal. No murmurs, rubs or gallops. Abdominal exam reveals normal bowel sounds, no masses, no organomegaly and no aortic enlargement. Extremities are nonedematous and both femoral and pedal pulses are normal. Examination of the skin revealed no evidence of significant rashes, suspicious appearing nevi or other concerning lesions. Neurologically, the patient is awake and alert and the patient does not have any focal neurological deficit. Cranial nerves are essentially intact. Results - Labs CBC & Chem 7: 06/08/24 05:33 06/08/24 05:33 Labs: Abnormal Lab Results - Last 24 Hours (Table) 06/07/24 06/08/24 06/08/24 Range/Units 06:04 05:33 05:33 WBC 3.88 L (4.50-10.00) X 10*3/uL RBC 2.79 L (4.40-5.60) X 10*6/uL Hgb 9.6 L (13.0-17.0) g/dL Hct 27.4 L (39.6-50.0) % MCV 98.2 H (80.0-97.0) FL MCH 34.4 H (27.0-32.0) pg Plt Count 67 L (140-440) X 10*3/uL MPV 14.8 H (9.5-12.2) FL Lymphocytes # 0.35 L (0.90-5.00) X 10*3/uL Immature Plt Fraction 19.7 H (1.1-6.1) % Sodium 128 L (135-145) mmol/L TIBC 227 L (228-460) UG/DL Transferrin 162.0 L (204.0-354.0) mg/dL Total Protein 5.9 L (6.2-8.2) g/dL Assessment and Plan Plan: Pulmonary nodule, left lower lobe, 12 mm, rule out round atelectasis versus primary lung cancer versus metastasis. The patient is neck smoker. The patient is known to have history of prostate cancer. Hypovolemic hyponatremia, improving sodium levels at 129 Prostate cancer. By radiation therapy Acute kidney injury, recovered Hypertension Hyperlipidemia Previous history of pneumonia with a parapneumonic effusion requiring drainage procedure back in 2016 (Pseudomonas) History of alcoholism Neutropenia Anemia of chronic disease Thrombocytopenia Plan Management of hyponatremia per nephrology, sodium is improving Renal function has normalized CAT scan of the chest was reviewed. Recommend outpatient follow-up including a PET/CT and biopsy if needed. Will follow
[2024-06-09 10:50] LABS: HCT 22.7 % (39.6-50.0); HGB 7.9 g/dL (13.0-17.0); Immature Platelet Fraction 16.5 % (1.1-6.1); MCH 34.2 pg (27.0-32.0); MCHC 34.8 g/dL (32.0-37.0); MCV 98.3 FL (80.0-97.0); Mean Platelet Volume 14.8 FL (9.5-12.2); NRBC Per 100 WBC 0 X 10*3/uL (0.00-0.01); Platelet Count 51 X 10*3/uL (140-440); RBC 2.31 X 10*6/uL (4.40-5.60); RDW 12.7 % (11.5-14.5); WBC 2.53 X 10*3/uL (4.50-10.00)
[2024-06-09 10:51] LABS: Basophils # (A) 0.02 X 10*3/uL (0.00-0.10); Basophils % (A) 0.8 %; Eosinophils # (A) 0.09 X 10*3/uL (0.04-0.35); Eosinophils % (A) 3.6 %; Lymphocytes # (A) 0.21 X 10*3/uL (0.90-5.00); Lymphocytes % (A) 8.3 %; Monocytes # (A) 0.33 X 10*3/uL (0.20-1.00); Neutrophils # (A) 1.87 X 10*3/uL (1.80-7.70); Neutrophils % (A) 73.9 %
[2024-06-09 12:02] LABS: ALT 24 U/L (10-49); AST 28 U/L (14-35); Albumin 3.4 g/dL (3.8-4.9); Albumin/Globulin Ratio 2.27 Ratio (1.60-3.17); Alkaline Phosphatase 55 U/L (41-126); BUN/Creat Ratio 12.12 Ratio (12.00-20.00); Blood Urea Nitrogen 9.7 mg/dL (9.0-27.0); Calcium 8.5 mg/dL (8.7-10.3); Carbon Dioxide 23.7 mmol/L (21.6-31.8); Chloride 98 mmol/L (96-109); Globulin 1.5 g/dL (1.6-3.3); Glucose 87 mg/dL (70-110); Sodium 128 mmol/L (135-145); Total Bilirubin 0.9 mg/dL (0.3-1.2); Total Protein 4.9 g/dL (6.2-8.2)
--- NOTE | 2024-06-09 14:03 | P.PN ---
Subjective Progress Note Date: 06/09/24 Gene Palm, is an 84-year-old male, who presented to [facility] emergency room, with a chief complaint of increasing weakness and multiple falls, patient was seen by his primary care physician, he had evidence of hyponatremia, he was sent to emergency room for further evaluation. He was evaluated in the emergency room vital examination on presentation revealed a temperature of 97.5 pulse 66 respiration 18 blood pressure 103/72 pulse ox 97% on room air Laboratory data revealed a white blood count of 4.4 hemoglobin 9.7 platelet count 73 sodium 121 BUN 33 creatinine 1.39 serum osmolality 268 urine osmolality 288 Testing in the emergency room revealed chest x-ray revealed patchy nodular density in the left upper lobe, EKG revealed sinus rhythm with first-degree AV block. Patient was admitted to medical floor for further evaluation and treatment Past medical history is significant for history of hypertension, history of hyperlipidemia, patient stated that he was taking blood pressure medications and cholesterol medications, however he recently decided with his primary care physician to stop all medications, and he stated that his numbers has been doing well without any pills at home. Patient also has a known history of prostate cancer he received radiation therapy, he also has a known history of osteoarthritis and hemorrhoids. On review of systems patient is alert and oriented x 3 in no apparent distress there is no fever or chills no headache or dizziness no chest pain no shortness of breath no cough no nausea or vomiting no abdominal pain no diarrhea no blood in the stools no burning with urination no frequency or urgency and no hematuria. On 06/08/2024 patient is alert and oriented x 3. CT scan was completed yesterday awaiting pulmonary review. Patient also noted to have hematuria that patient reports is new for him. Will consult urology services and order ultrasound of bladder and kidneys. Patient daughter also on phone during exam requesting that patient continue to stay in hospital until workup is completed. Awaiting lab work. Patient denies any chest pain or shortness of breath. Patient denies nausea vomiting or diarrhea. Patient denies any urinary burning or frequency. Current vital signs temp 98.0, heart 64, respiratory rate 16, b lood pressure 123/74 with pulse ox of 100% on room air. On 06/09/2024 patient was seen and examined on the medical floor he is alert and oriented x 3 in no apparent distress there is no fever or chills no headache or dizziness no chest pain no shortness of breath no cough no nausea or vomiting no abdominal pain no diarrhea and no urinary symptoms. Labs are significant for sodium of 128 and hemoglobin 7.9, awaiting further evaluation and recommendation from nephrology and urology will continue to follow closely. Objective - Vital Signs Vital signs: Vital Signs Temp 97.4 F L 06/09/24 12:17 Pulse 89 06/09/24 12:17 Resp 14 06/09/24 12:17 BP 97/60 06/09/24 12:17 Pulse Ox 95 06/09/24 12:17 FiO2 Intake & Output 06/08/24 06/09/24 06/09/24 18:59 06:59 18:59 Intake Total 200 Output Total 200 Balance 0 Intake: Oral 200 Output: Urine 200 Other: Voiding Method Urinal Toilet Toilet # Voids 1 - Exam In general patient is alert and oriented x 3 in no distress HEENT head normocephalic and atraumatic Neck is supple no JVD no goiter no lymphadenopathy no carotid bruit Chest examination is clear to auscultation no crackles no wheezing Cardiac exam reveals regular heart sounds S1 and S2 no gallops no murmurs Abdomen is soft nontender no organomegaly with normal bowel sounds Extremity exam reveals no edema no cyanosis or clubbing Neurological examination reveals no gross focal deficits - Labs CBC & Chem 7: 06/09/24 04:58 06/09/24 04:58 Labs: Abnormal Lab Results - Last 24 Hours (Table) 06/09/24 06/09/24 Range/Units 04:58 04:58 WBC 2.53 L (4.50-10.00) X 10*3/uL RBC 2.31 L (4.40-5.60) X 10*6/uL Hgb 7.9 L (13.0-17.0) g/dL Hct 22.7 L (39.6-50.0) % MCV 98.3 H (80.0-97.0) FL MCH 34.2 H (27.0-32.0) pg Plt Count 51 L (140-440) X 10*3/uL MPV 14.8 H (9.5-12.2) FL Lymphocytes # 0.21 L (0.90-5.00) X 10*3/uL Immature Plt Fraction 16.5 H (1.1-6.1) % Sodium 128 L (135-145) mmol/L Calcium 8.5 L (8.7-10.3) mg/dL Total Protein 4.9 L (6.2-8.2) g/dL Albumin 3.4 L (3.8-4.9) g/dL Globulin 1.5 L (1.6-3.3) g/dL Assessment and Plan Plan: Generalized weakness with multiple falls at home Dehydration with acute kidney injury Severe hyponatremia Hematuria. Urology services consulted ultrasound ordered Evidence of nodular density in the left upper lobe, pulmonary consultation requested Underlying history of prostate cancer status post radiation therapy Underlying history of hypertension not requiring any medications recently Underlying history of hyperlipidemia Underlying history of osteoarthritis At this time patient is admitted to medical floor He was started on IV normal saline in the emergency room For DVT prophylaxis I will order subcu Lovenox Nephrology consultation was requested I will add pulmonary consultation in regard to left upper lobe nodular density Will continue to follow closely
--- NOTE | 2024-06-09 16:38 | P.PN ---
Subjective Progress Note Date: 06/09/24 84-year-old male patient presented to the hospital because of generalized weakness and falls. In the emergency department, the patient was found to have hyponatremia and his sodium level was calculated to be at 122 and subsequently dropped down to 118. Based on that, the patient was seen by nephrology. The patient was started on normal saline and the most recent sodium level is at 127. Serum creatinine was 1.39, admission and dropped down to 0.9. As such, the patient was considered to have a hypovolemic hyponatremia improved with saline and the acute kidney injury is also improved. Is noted prostate cancer treated by radiation therapy in the past. He has history of chronic alcoholism and he was hospitalized back in 2016 for a parapneumonic effusion requiring a pigtail catheter and subsequent chest tube insertion. Back then, the microorganism was positive for Pseudomonas aeruginosa as cultures from the sputum. The chest x- ray was done in the emergency department showed a patchy nodular density in the left upper lobe and CAT scan of the chest was recommended. Patient is currently calm and comfortable nausea at rate of 75 cc an hour. He is on room air oxygen with a pulse ox of 97%. Afebrile hemodynamically stable. He is also known to have other comorbidities including hypertension hyperlipidemia and chronic anemia. On 06/08/2024, the patient is being seen for a follow-up. Noted the patient sodium level is improving and is currently up to 128. Renal function is also im proved and the creatinine is down to 0.8. The patient has no specific complaints. The patient remains on room air oxygen with a pulse ox of 99%. He is afebrile. Based on the chest x-ray findings, a CAT scan of the chest was obtained and I reviewed the CAT scan of the chest and the patient is a 12 mm pulmonary nodule in the left lower lobe. No airspace disease. No consolidation. No pleural effusion. Some atelectatic changes lung base bilaterally. Based on his previous history of prostatic cancer and smoking, this nodule needs to be further followed up on outpatient basis. A PET/CT may be also useful to assess the metabolic activity of this left lower lobe pulmonary nodule. Below Dr. Preet wang 06/09/2024, the patient has no specific complaints. Alert and oriented x 3. No fever or chills. No significant shortness of breath. The sodium level is currently up to 128. Potassium is at 4, BUN is 9 with a creatinine of 0.8. The white cell count is at 2.5 with a hemoglobin of 7.9 and a platelet count of 51. Objective - Vital Signs Vital signs: Vital Signs Temp 97.4 F L 06/09/24 12:17 Pulse 89 06/09/24 12:17 Resp 14 06/09/24 12:17 BP 97/60 06/09/24 12:17 Pulse Ox 95 06/09/24 12:17 FiO2 Intake & Output 06/08/24 06/09/24 06/09/24 18:59 06:59 18:59 Intake Total 200 Output Total 200 Balance 0 Intake: Oral 200 Output: Urine 200 Other: Voiding Method Urinal Toilet Toilet # Voids 1 - Exam The patient appeared well nourished and normally developed. Vital signs as documented. Head exam is unremarkable. No scleral icterus or corneal arcus noted. Neck is without jugular venous distension, thyromegaly, or carotid bruits. Carotid upstrokes are brisk bilaterally. Lungs are clear to auscultation and percussion. Cardiac exam reveals the PMI to be normally sized and situated. Rhythm is regu lar. First and second heart sounds normal. No murmurs, rubs or gallops. Abdominal exam reveals normal bowel sounds, no masses, no organomegaly and no aortic enlargement. Extremities are nonedematous and both femoral and pedal pulses are normal. Examination of the skin revealed no evidence of significant rashes, suspicious appearing nevi or other concerning lesions. Neurologically, the patient is awake and alert and the patient does not have any focal neurological deficit. Cranial nerves are essentially intact. Results - Labs CBC & Chem 7: 06/09/24 04:58 06/09/24 04:58 Labs: Abnormal Lab Results - Last 24 Hours (Table) 06/09/24 06/09/24 Range/Units 04:58 04:58 WBC 2.53 L (4.50-10.00) X 10*3/uL RBC 2.31 L (4.40-5.60) X 10*6/uL Hgb 7.9 L (13.0-17.0) g/dL Hct 22.7 L (39.6-50.0) % MCV 98.3 H (80.0-97.0) FL MCH 34.2 H (27.0-32.0) pg Plt Count 51 L (140-440) X 10*3/uL MPV 14.8 H (9.5-12.2) FL Lymphocytes # 0.21 L (0.90-5.00) X 10*3/uL Immature Plt Fraction 16.5 H (1.1-6.1) % Sodium 128 L (135-145) mmol/L Calcium 8.5 L (8.7-10.3) mg/dL Total Protein 4.9 L (6.2-8.2) g/dL Albumin 3.4 L (3.8-4.9) g/dL Globulin 1.5 L (1.6-3.3) g/dL Assessment and Plan Plan: Pulmonary nodule, left lower lobe, 12 mm, rule out round atelectasis versus primary lung cancer versus metastasis. The patient is neck smoker. The patient is known to have history of prostate cancer. Hypovolemic hyponatremia, improving sodium levels at 128 Prostate cancer. By radiation therapy Acute kidney injury, recovered Hypertension Hyperlipidemia Previous history of pneumonia with a parapneumonic effusion requiring drainage procedure back in 2016 (Pseudomonas) History of alcoholism Neutropenia Anemia of chronic disease Thrombocytopenia Plan Management of hyponatremia per nephrology Will monitor sodium level Patient has a component of pancytopenia as noted on the blood work Renal function has normalized CAT scan of the chest was reviewed. Recommend outpatient follow-up including a PET/CT and biopsy if needed. Will follow
--- NOTE | 2024-06-09 17:36 | P.PN ---
Subjective patient is seen for follow-up for hyponatremia. Currently maintained on normal saline and serum sodium has improved to 128. Serum sodium remains at 128. Status post sodium chloride tablet yesterday. Blood pressure was elevated this morning but has decreased to 97/60 No significant complaints. Renal function has improved with creatinine down to 0.8 mg/dL. Objective - Vital Signs Vital signs: Vital Signs Temp 97.4 F L 06/09/24 12:17 Pulse 89 06/09/24 12:17 Resp 14 06/09/24 12:17 BP 97/60 06/09/24 12:17 Pulse Ox 95 06/09/24 12:17 FiO2 Intake & Output 06/08/24 06/09/24 06/09/24 18:59 06:59 18:59 Intake Total 200 Output Total 200 Balance 0 Intake: Oral 200 Output: Urine 200 Other: Voiding Method Urinal Toilet Toilet # Voids 1 - Exam patient is awake, comfortable, no acute distress. Examination of the heart S1 and S2 Examination of the lungs bilateral breath sounds are heard Abdomen is soft nontender Examination of lower extremity shows trace edema [place] exam grossly intact - Labs CBC & Chem 7: 06/09/24 04:58 06/09/24 04:58 Labs: Abnormal Lab Results - Last 24 Hours (Table) 06/09/24 06/09/24 Range/Units 04:58 04:58 WBC 2.53 L (4.50-10.00) X 10*3/uL RBC 2.31 L (4.40-5.60) X 10*6/uL Hgb 7.9 L (13.0-17.0) g/dL Hct 22.7 L (39.6-50.0) % MCV 98.3 H (80.0-97.0) FL MCH 34.2 H (27.0-32.0) pg Plt Count 51 L (140-440) X 10*3/uL MPV 14.8 H (9.5-12.2) FL Lymphocytes # 0.21 L (0.90-5.00) X 10*3/uL Immature Plt Fraction 16.5 H (1.1-6.1) % Sodium 128 L (135-145) mmol/L Calcium 8.5 L (8.7-10.3) mg/dL Total Protein 4.9 L (6.2-8.2) g/dL Albumin 3.4 L (3.8-4.9) g/dL Globulin 1.5 L (1.6-3.3) g/dL Assessment and Plan Assessment: 1. Hypovolemic hyponatremia improved with normal saline. Serum sodium has not improved further. Blood pressure was significantly elevated this morning after sodium chloride tab yesterday evening. 2. Acute kidney injury secondary to volume depletion, improved with IV hydration. 3. History of prostatic cancer status post radiation therapy, bony metastases noted on CT in 2020 4. Anemia , iron replete Plan: DC IV fluids Repeat labs in am
[2024-06-10 10:00] LABS: BUN/Creat Ratio 12.75 Ratio (12.00-20.00); Blood Urea Nitrogen 10.2 mg/dL (9.0-27.0); Carbon Dioxide 22.8 mmol/L (21.6-31.8); Chloride 97 mmol/L (96-109); Glucose 86 mg/dL (70-110); Potassium 4.1 mmol/L (3.5-5.5); Sodium 130 mmol/L (135-145)
[2024-06-10 10:01] LABS: ALT 31 U/L (10-49); AST 36 U/L (14-35); Albumin 3.9 g/dL (3.8-4.9); Albumin/Globulin Ratio 2.17 Ratio (1.60-3.17); Alkaline Phosphatase 66 U/L (41-126); Calcium 8.9 mg/dL (8.7-10.3); Globulin 1.8 g/dL (1.6-3.3); Total Bilirubin 0.9 mg/dL (0.3-1.2); Total Protein 5.7 g/dL (6.2-8.2)
--- NOTE | 2024-06-10 10:07 | P.PN ---
Subjective Progress Note Date: 06/10/24 Gene Palm, is an 84-year-old male, who presented to [facility] emergency room, with a chief complaint of increasing weakness and multiple falls, patient was seen by his primary care physician, he had evidence of hyponatremia, he was sent to emergency room for further evaluation. He was evaluated in the emergency room vital examination on presentation revealed a temperature of 97.5 pulse 66 respiration 18 blood pressure 103/72 pulse ox 97% on room air Laboratory data revealed a white blood count of 4.4 hemoglobin 9.7 platelet count 73 sodium 121 BUN 33 creatinine 1.39 serum osmolality 268 urine osmolality 288 Testing in the emergency room revealed chest x-ray revealed patchy nodular density in the left upper lobe, EKG revealed sinus rhythm with first-degree AV block. Patient was admitted to medical floor for further evaluation and treatment Past medical history is significant for history of hypertension, history of hyperlipidemia, patient stated that he was taking blood pressure medications and cholesterol medications, however he recently decided with his primary care physician to stop all medications, and he stated that his numbers has been doing well without any pills at home. Patient also has a known history of prostate cancer he received radiation therapy, he also has a known history of osteoarthritis and hemorrhoids. On review of systems patient is alert and oriented x 3 in no apparent distress there is no fever or chills no headache or dizziness no chest pain no shortness of breath no cough no nausea or vomiting no abdominal pain no diarrhea no blood in the stools no burning with urination no frequency or urgency and no hematuria. On 06/08/2024 patient is alert and oriented x 3. CT scan was completed yesterday awaiting pulmonary review. Patient also noted to have hematuria that patient reports is new for him. Will consult urology services and order ultrasound of bladder and kidneys. Patient daughter also on phone during exam requesting that patient continue to stay in hospital until workup is completed. Awaiting lab work. Patient denies any chest pain or shortness of breath. Patient denies nausea vomiting or diarrhea. Patient denies any urinary burning or frequency. Current vital signs temp 98.0, heart 64, respiratory rate 16, b lood pressure 123/74 with pulse ox of 100% on room air. On 06/09/2024 patient was seen and examined on the medical floor he is alert and oriented x 3 in no apparent distress there is no fever or chills no headache or dizziness no chest pain no shortness of breath no cough no nausea or vomiting no abdominal pain no diarrhea and no urinary symptoms. Labs are significant for sodium of 128 and hemoglobin 7.9, awaiting further evaluation and recommendation from nephrology and urology will continue to follow closely. On 06/10/2024 patient is alert and oriented x 3. Patient is currently resting c omfortably in bed. Patient denies any chest pain or shortness of breath. Patient denies any urinary burning or frequency. Hemoglobin dropped yesterday 7.9 patient denies any further hematuria. Awaiting repeat labs this morning. Sodium level at 130. Vital signs temp 97.4, heart rate 61, respiratory rate 14, blood pressure 126/65 with a pulse ox of 97% on room air Objective - Vital Signs Vital signs: Vital Signs Temp 97.4 F L 06/10/24 07:19 Pulse 61 06/10/24 08:45 Resp 14 06/10/24 08:45 BP 126/65 06/10/24 07:19 Pulse Ox 97 06/10/24 07:19 FiO2 Intake & Output 06/09/24 06/10/24 06/10/24 18:59 06:59 18:59 Intake Total 540 Output Total 200 Balance -200 540 Intake: Oral 540 Output: Urine 200 Other: Voiding Method Toilet Toilet Toilet # Voids 1 # Bowel Movements 1 - Exam In general patient is alert and oriented x 3 in no distress HEENT head normocephalic and atraumatic Neck is supple no JVD no goiter no lymphadenopathy no carotid bruit Chest examination is clear to auscultation no crackles no wheezing Cardiac exam reveals regular heart sounds S1 and S2 no gallops no murmurs Abdomen is soft nontender no organomegaly with normal bowel sounds Extremity exam reveals no edema no cyanosis or clubbing Neurological examination reveals no gross focal deficits - Labs CBC & Chem 7: 06/09/24 04:58 06/10/24 04:45 Labs: Abnormal Lab Results - Last 24 Hours (Table) 06/09/24 06/09/24 06/10/24 Range/Units 04:58 04:58 04:45 WBC 2.53 L (4.50-10.00) X 10*3/uL RBC 2.31 L (4.40-5.60) X 10*6/uL Hgb 7.9 L (13.0-17.0) g/dL Hct 22.7 L (39.6-50.0) % MCV 98.3 H (80.0-97.0) FL MCH 34.2 H (27.0-32.0) pg Plt Count 51 L (140-440) X 10*3/uL MPV 14.8 H (9.5-12.2) FL Lymphocytes # 0.21 L (0.90-5.00) X 10*3/uL Immature Plt Fraction 16.5 H (1.1-6.1) % Sodium 128 L 130 L (135-145) mmol/L Calcium 8.5 L (8.7-10.3) mg/dL AST 36 H (14-35) U/L Total Protein 4.9 L 5.7 L (6.2-8.2) g/dL Albumin 3.4 L (3.8-4.9) g/dL Globulin 1.5 L (1.6-3.3) g/dL Assessment and Plan Plan: Generalized weakness with multiple falls at home Dehydration with acute kidney injury Severe hyponatremia Hematuria. Urology services consulted ultrasound ordered Evidence of nodular density in the left upper lobe, pulmonary consultation requested Underlying history of prostate cancer status post radiation therapy Underlying history of hypertension not requiring any medications recently Underlying history of hyperlipidemia Underlying history of osteoarthritis At this time patient is admitted to medical floor He was started on IV normal saline in the emergency room For DVT prophylaxis I will order subcu Lovenox Nephrology consultation was requested I will add pulmonary consultation in regard to left upper lobe nodular density urology services consulted Will continue to follow closely
[2024-06-10 11:24] LABS: Basophils # (A) 0.04 X 10*3/uL (0.00-0.10); Basophils % (A) 1.1 %; Eosinophils # (A) 0.12 X 10*3/uL (0.04-0.35); Eosinophils % (A) 3.4 %; HCT 27.5 % (39.6-50.0); HGB 9.5 g/dL (13.0-17.0); Lymphocytes # (A) 0.35 X 10*3/uL (0.90-5.00); Lymphocytes % (A) 9.8 %; MCH 33.7 pg (27.0-32.0); MCHC 34.5 g/dL (32.0-37.0); MCV 97.5 FL (80.0-97.0); Mean Platelet Volume 14.6 FL (9.5-12.2); NRBC Per 100 WBC 0 X 10*3/uL (0.00-0.01); Neutrophils # (A) 2.55 X 10*3/uL (1.80-7.70); Neutrophils % (A) 71.4 %; Platelet Count 65 X 10*3/uL (140-440); RBC 2.82 X 10*6/uL (4.40-5.60); RDW 12.7 % (11.5-14.5); WBC 3.57 X 10*3/uL (4.50-10.00)
--- NOTE | 2024-06-10 11:52 | P.PN ---
Subjective patient is seen for follow-up for hyponatremia. status post normal saline. Status post sodium chloride tablet x1. Serum sodium 1:30 today No significant complaints. Renal function has improved with creatinine down to 0.8 mg/dL. Objective - Vital Signs Vital signs: Vital Signs Temp 97.4 F L 06/10/24 07:19 Pulse 61 06/10/24 08:45 Resp 14 06/10/24 08:45 BP 126/65 06/10/24 07:19 Pulse Ox 97 06/10/24 07:19 FiO2 Intake & Output 06/09/24 06/10/24 06/10/24 18:59 06:59 18:59 Intake Total 540 Output Total 200 Balance -200 540 Intake: Oral 540 Output: Urine 200 Other: Voiding Method Toilet Toilet Toilet # Voids 1 # Bowel Movements 1 - Exam patient is awake, comfortable, no acute distress. Examination of the heart S1 and S2 Examination of the lungs bilateral breath sounds are heard Abdomen is soft nontender Examination of lower extremity shows trace edema [employer] exam grossly intact - Labs CBC & Chem 7: 06/10/24 04:45 06/10/24 04:45 Labs: Abnormal Lab Results - Last 24 Hours (Table) 06/09/24 06/10/24 06/10/24 Range/Units 04:58 04:45 04:45 WBC 3.57 L (4.50-10.00) X 10*3/uL RBC 2.82 L (4.40-5.60) X 10*6/uL Hgb 9.5 L (13.0-17.0) g/dL Hct 27.5 L (39.6-50.0) % MCV 97.5 H (80.0-97.0) FL MCH 33.7 H (27.0-32.0) pg Plt Count 65 L (140-440) X 10*3/uL MPV 14.6 H (9.5-12.2) FL Lymphocytes # 0.35 L (0.90-5.00) X 10*3/uL Immature Plt Fraction 18.0 H (1.1-6.1) % Sodium 128 L 130 L (135-145) mmol/L Calcium 8.5 L (8.7-10.3) mg/dL AST 36 H (14-35) U/L Total Protein 4.9 L 5.7 L (6.2-8.2) g/dL Albumin 3.4 L (3.8-4.9) g/dL Globulin 1.5 L (1.6-3.3) g/dL Assessment and Plan Assessment: 1. Hypovolemic hyponatremia improved with normal saline. Saline now discontinued. Sodium is 1:30 today. 2. Acute kidney injury secondary to volume depletion, improved with IV hydration. 3. History of prostatic cancer status post radiation therapy, bony metastases noted on CT in 2020 4. Anemia , iron replete Plan: continue off of IV fluids Encouraged increased oral intake Repeat labs in am
--- NOTE | 2024-06-10 13:59 | P.PN ---
Subjective Progress Note Date: 06/10/24 84-year-old male patient presented to the hospital because of generalized weakness and falls. In the emergency department, the patient was found to have hyponatremia and his sodium level was calculated to be at 122 and subsequently dropped down to 118. Based on that, the patient was seen by nephrology. The patient was started on normal saline and the most recent sodium level is at 127. Serum creatinine was 1.39, admission and dropped down to 0.9. As such, the patient was considered to have a hypovolemic hyponatremia improved with saline and the acute kidney injury is also improved. Is noted prostate cancer treated by radiation therapy in the past. He has history of chronic alcoholism and he was hospitalized back in 2016 for a parapneumonic effusion requiring a pigtail catheter and subsequent chest tube insertion. Back then, the microorganism was positive for Pseudomonas aeruginosa as cultures from the sputum. The chest x- ray was done in the emergency department showed a patchy nodular density in the left upper lobe and CAT scan of the chest was recommended. Patient is currently calm and comfortable nausea at rate of 75 cc an hour. He is on room air oxygen with a pulse ox of 97%. Afebrile hemodynamically stable. He is also known to have other comorbidities including hypertension hyperlipidemia and chronic anemia. On 06/08/2024, the patient is being seen for a follow-up. Noted the patient sodium level is improving and is currently up to 128. Renal function is also im proved and the creatinine is down to 0.8. The patient has no specific complaints. The patient remains on room air oxygen with a pulse ox of 99%. He is afebrile. Based on the chest x-ray findings, a CAT scan of the chest was obtained and I reviewed the CAT scan of the chest and the patient is a 12 mm pulmonary nodule in the left lower lobe. No airspace disease. No consolidation. No pleural effusion. Some atelectatic changes lung base bilaterally. Based on his previous history of prostatic cancer and smoking, this nodule needs to be further followed up on outpatient basis. A PET/CT may be also useful to assess the metabolic activity of this left lower lobe pulmonary nodule. Below Dr. Preet wang 06/09/2024, the patient has no specific complaints. Alert and oriented x 3. No fever or chills. No significant shortness of breath. The sodium level is currently up to 128. Potassium is at 4, BUN is 9 with a creatinine of 0.8. The white cell count is at 2.5 with a hemoglobin of 7.9 and a platelet count of 51. On 06/10/2024 the patient is doing well. Sodium levels improved and the currently the levels up to 130. No significant complaints. Creatinine is improved and is currently down to 0.8. The patient is afebrile. The patient hemodynamic stable on room air oxygen. Medications are unchanged. Objective - Vital Signs Vital signs: Vital Signs Temp 97.3 F L 06/10/24 11:59 Pulse 68 06/10/24 11:59 Resp 14 06/10/24 11:59 BP 116/61 06/10/24 11:59 Pulse Ox 97 06/10/24 11:59 FiO2 Intake & Output 06/09/24 06/10/24 06/10/24 18:59 06:59 18:59 Intake Total 540 Output Total 200 Balance -200 540 Intake: Oral 540 Output: Urine 200 Other: Voiding Method Toilet Toilet Toilet # Voids 1 # Bowel Movements 1 - Exam The patient appeared well nourished and normally developed. Vital signs as documented. Head exam is unremarkable. No scleral icterus or corneal arcus noted. Neck is without jugular venous distension, thyromegaly, or carotid bruits. Carotid upstrokes are brisk bilaterally. Lungs are clear to auscultation and percussion. Cardiac exam reveals the PMI to be normally sized and situated. Rhythm is regular. First and second heart sounds normal. No murmurs, rubs or gallops. Abdominal exam reveals normal bowel sounds, no masses, no organomegaly and no aortic enlargement. Extremities are nonedematous and both femoral and pedal pulses are normal. Examination of the skin revealed no evidence of significant rashes, suspicious appearing nevi or other concerning lesions. Neurologically, the patient is awake and alert and the patient does not have any focal neurological deficit. Cranial nerves are essentially intact. Results - Labs CBC & Chem 7: 06/10/24 04:45 06/10/24 04:45 Labs: Abnormal Lab Results - Last 24 Hours (Table) 06/10/24 06/10/24 Range/Units 04:45 04:45 WBC 3.57 L (4.50-10.00) X 10*3/uL RBC 2.82 L (4.40-5.60) X 10*6/uL Hgb 9.5 L (13.0-17.0) g/dL Hct 27.5 L (39.6-50.0) % MCV 97.5 H (80.0-97.0) FL MCH 33.7 H (27.0-32.0) pg Plt Count 65 L (140-440) X 10*3/uL MPV 14.6 H (9.5-12.2) FL Lymphocytes # 0.35 L (0.90-5.00) X 10*3/uL Immature Plt Fraction 18.0 H (1.1-6.1) % Sodium 130 L (135-145) mmol/L AST 36 H (14-35) U/L Total Protein 5.7 L (6.2-8.2) g/dL Assessment and Plan Plan: Pulmonary nodule, left lower lobe, 12 mm, rule out round atelectasis versus primary lung cancer versus metastasis. The patient is neck smoker. The patient is known to have history of prostate cancer. Hypovolemic hyponatremia, improving sodium levels at 130 Prostate cancer, treated by radiation therapy Acute kidney injury, recovered Hypertension Hyperlipidemia Previous history of pneumonia with a parapneumonic effusion requiring drainage procedure back in 2016 (Pseudomonas) History of alcoholism Neutropenia Anemia of chronic disease Thrombocytopenia Plan Management of hyponatremia per nephrology, sodium levels up to 130 Patient has a component of pancytopenia as noted on the blood work Renal function has normalized CAT scan of the chest was reviewed. Recommend outpatient follow-up including a PET/CT and biopsy if needed. Will sign off the case, outpatient follow-up
--- NOTE | 2024-06-11 08:35 | P.PN ---
Subjective Patient is seen in follow-up for hyponatremia. Sodium level 130 yesterday. Currently having breakfast. No vomiting or diarrhea. Wants to go home. Vital signs are stable. General: No acute distress. HEENT: Head exam is unremarkable. LUNGS: No audible rhonchi or wheezes. HEART: Rate and Rhythm are regular. ABDOMEN: Nontender. EXTREMITITES: No edema. Objective - Vital Signs Vital signs: Vital Signs Temp 97.6 F 06/11/24 07:33 Pulse 67 06/11/24 07:33 Resp 18 06/11/24 07:33 BP 110/63 06/11/24 07:33 Pulse Ox 96 06/11/24 07:33 FiO2 Intake & Output 06/10/24 06/11/24 06/11/24 18:59 06:59 18:59 Intake Total 360 540 Output Total 100 Balance 360 440 Intake: Oral 360 540 Output: Urine 100 Other: Voiding Method Toilet Toilet # Voids 5 1 # Bowel Movements 1 - Labs CBC & Chem 7: 06/10/24 04:45 06/10/24 04:45 Labs: Abnormal Lab Results - Last 24 Hours (Table) 06/10/24 06/10/24 Range/Units 04:45 04:45 WBC 3.57 L (4.50-10.00) X 10*3/uL RBC 2.82 L (4.40-5.60) X 10*6/uL Hgb 9.5 L (13.0-17.0) g/dL Hct 27.5 L (39.6-50.0) % MCV 97.5 H (80.0-97.0) FL MCH 33.7 H (27.0-32.0) pg Plt Count 65 L (140-440) X 10*3/uL MPV 14.6 H (9.5-12.2) FL Lymphocytes # 0.35 L (0.90-5.00) X 10*3/uL Immature Plt Fraction 18.0 H (1.1-6.1) % Sodium 130 L (135-145) mmol/L AST 36 H (14-35) U/L Total Protein 5.7 L (6.2-8.2) g/dL Assessment and Plan Plan: Assessment: 1. Hypovolemic hyponatremia improved with IV hydration. Sodium level 130 yesterday. Now off IV fluids. Urine osmolality 288. TSH normal. Cortisol level not low. 2. Acute kidney injury secondary to vasomotor nephropathy from hypovolemia. Resolved. UA benign. 3. History of prostate cancer status post radiation therapy. Seen by urology. Plan: Encouraged oral intake. Repeat BMP and magnesium level 2 to 3 days postdischarge. Follow-up outpatient 1 week postdischarge.
[2024-06-11 09:15] LABS: African American GFR (CKD) >90 (>60 ml/min/1.73 sqM); Anion Gap 6 mmol/L; Blood Urea Nitrogen 7 mg/dL (9-20); Carbon Dioxide 26 mmol/L (22-30); Chloride 96 mmol/L (98-107); Glucose 114 mg/dL (74-99); Magnesium 1.4 mg/dL (1.6-2.3); Non-African American GFR(CKD) 87 (>60 ml/min/1.73 sqM); Potassium 3.7 mmol/L (3.5-5.1); Sodium 128 mmol/L (137-145)
[2024-06-11] MEDS: ACETAMINOPHEN TAB 325 MG TAB PO PRN (09:33)
[2024-06-11 12:44] VITALS: BP 114/71; PULSE 96; RESP 16; TEMP 97.9
[2024-06-11] MEDS ORDERED: MAGNESIUM SULFATE-D5W PMX 1 GM in DEXTROSE/WATER 1 100ML.BAG IVPB SCH (15:30)
[2024-06-11] MEDS ORDERED: SODIUM CHLORIDE TAB 1 GM TAB PO SCH (16:00)
--- NOTE | 2024-06-20 09:19 | P.DS ---
Providers Date of admission: 06/06/24 15:53 Expected date of discharge: 06/11/24 Attending physician: Lulú Polk Consults: 06/06/24 14:43 Consult Physician Urgent Consulting Provider: Cherrie Lehman Consult Reason/Comments: Hyponatremia Do you want consulting provider notified?: Yes 06/07/24 17:47 Consult Physician Routine Consulting Provider: Vitaly Mcneil Consult Reason/Comments: Left upper lobe nodular density Do you want consulting provider notified?: Yes 06/08/24 10:34 Consult Physician Routine Consulting Provider: Butch Betancourt Consult Reason/Comments: Hematuria history of prostate cancer Do you want consulting provider notified?: Yes Primary care physician: Chandni Houser [facility] Course: discharge diagnosis Generalized weakness with multiple falls at home Dehydration with acute kidney injury Severe hyponatremia Hematuria. Urology services consulted ultrasound ordered Evidence of nodular density in the left upper lobe, pulmonary consultation requested Underlying history of prostate cancer status post radiation therapy Underlying history of hypertension not requiring any medications recently Underlying history of hyperlipidemia Underlying history of osteoarthritis Hospital course Gene Palm, is an 84-year-old male, who presented to [facility] emergency room, with a chief complaint of increasing weakness and multiple falls, patient was seen by his primary care physician, he had evidence of hyponatremia, he was sent to emergency room for further evaluation. He was evaluated in the emergency room vital examination on presentation revealed a temperature of 97.5 pulse 66 respiration 18 blood pressure 103/72 pulse ox 97% on room air Laboratory data revealed a white blood count of 4.4 hemoglobin 9.7 platelet count 73 sodium 121 BUN 33 creatinine 1.39 serum osmolality 268 urine osmolality 288 Testing in the emergency room revealed chest x-ray revealed patchy nodular density in the left upper lobe, EKG revealed sinus rhythm with first-degree AV block. Patient was admitted to medical floor for further evaluation and treatment Past medical history is significant for history of hypertension, history of hyperlipidemia, patient stated that he was taking blood pressure medications and cholesterol medications, however he recently decided with his primary care physician to stop all medications, and he stated that his numbers has been doing well without any pills at home. Patient also has a known history of prostate cancer he received radiation therapy, he also has a known history of osteoarthritis and hemorrhoids. On review of systems patient is alert and oriented x 3 in no apparent distress there is no fever or chills no headache or dizziness no chest pain no shortness of breath no cough no nausea or vomiting no abdominal pain no diarrhea no blood in the stools no burning with urination no frequency or urgency and no hematuria. On 06/08/2024 patient is alert and oriented x 3. CT scan was completed yesterday awaiting pulmonary review. Patient also noted to have hematuria that patient reports is new for him. Will consult urology services and order ultrasound of bladder and kidneys. Patient daughter also on phone during exam requesting that patient continue to stay in hospital until workup is completed. Awaiting lab work. Patient denies any chest pain or shortness of breath. Patient denies nausea vomiting or diarrhea. Patient denies any urinary burning or frequency. Current vital signs temp 98.0, heart 64, respiratory rate 16, b lood pressure 123/74 with pulse ox of 100% on room air. On 06/09/2024 patient was seen and examined on the medical floor he is alert and oriented x 3 in no apparent distress there is no fever or chills no headache or dizziness no chest pain no shortness of breath no cough no nausea or vomiting no abdominal pain no diarrhea and no urinary symptoms. Labs are significant for sodium of 128 and hemoglobin 7.9, awaiting further evaluation and recommendation from nephrology and urology will continue to follow closely. On 06/10/2024 patient is alert and oriented x 3. Patient is currently resting c omfortably in bed. Patient denies any chest pain or shortness of breath. Patient denies any urinary burning or frequency. Hemoglobin dropped yesterday 7.9 patient denies any further hematuria. Awaiting repeat labs this morning. Sodium level at 130. Vital signs temp 97.4, heart rate 61, respiratory rate 14, blood pressure 126/65 with a pulse ox of 97% on room air on 06/11/2024 patient's alert and oriented 3. Patient has been cleared for discharge patient to follow-up with urology nephrology services outpatient patient follow up with PCP for further management. Patient Condition at Discharge: Stable Plan - Discharge Summary Discharge Rx Participant: No New Discharge Prescriptions: No Action No Known Home Medications Discharge Medication List No Known Home Medications 06/06/24 [History] Follow up Appointment(s)/Referral(s): Chandni Houser MD [Primary Care Provider] - 10/22/24 1:45 pm Bhaskar Ruffin MD [STAFF PHYSICIAN] - 2 Weeks (NEEDS AN APPOINTMENT TO SEE in 2 weeks for Lupron injection and cystoscopy.The office will call you with an appointment time and date when they speak with Dr. Ruffin.) Pipe Pacheco DO [STAFF PHYSICIAN] - 1 Week (The office was not avaible to answer. Please call and make own follow up appointment.) Patient Instructions/Handouts: Hyponatremia (DC), Fall Prevention (DC) Activity/Diet/Wound Care/Special Instructions: Actiivity as tolerated. Colony salt intake with diet(high salt). Discharge Disposition: HOME SELF-CARE
== END 2024-06-11 15:40 | disposition home or self-care (01) | DRG 640 ==
LOC: EC 10:41 → 5NMEDONC 15:53
PROVIDERS: ADMIT Internal Medicine; ATTEND Internal Medicine
DX: E87.1 Hypo-osmolality and hyponatremia (principal); N17.0 Acute kidney failure with tubular necrosis; R29.6 Repeated falls; E86.0 Dehydration; E78.5 Hyperlipidemia, unspecified; E86.1 Hypovolemia; D64.9 Anemia, unspecified; I10 Essential (primary) hypertension; Z85.46 Personal history of malignant neoplasm of prostate; R31.0 Gross hematuria; Z87.891 Personal history of nicotine dependence
CPT/HCPCS: 36415; 71046; 71260; 76770; 80048; 80053; 81003; 82533; 83540; 83550; 83735; 83880; 83930; 83935; 84100; 84443; 85025; 93005; 96361; 96374; 99285

== ENCOUNTER → 2025-02-01 | Outpatient (CLI) | payer MEDICARE, BC ==
--- NOTE | 2025-02-03 15:14 | PE ---
EXAMINATION TYPE: PET CT fusion skull to thigh DATE OF EXAM: 02/01/2025 COMPARISON: CT chest 06/07/2024 Prior PET/CT: No prior PET/CT at this location CLINICAL INDICATION: Male, 84 years old with history of R91.1 LUNG NODULE, TECHNIQUE: Following the intravenous administration of 10.21 mCi of F-18 FDG, whole body images are performed PET CT fusion skull to thigh. Images are reviewed on the computer in the coronal, axial, a nd sagittal planes. Reconstructed rotating images are created on independent workstation and reviewe d on the computer. A localization and attenuation correction CT is performed in conjunction with e PET scan. DLP: 601.3 mGycm SCAN: Initial Blood glucose: 90 mg/dL Average Mediastinum SUV: 2.06 Average Liver SUV: 2.71 FINDINGS: NECK: No abnormal uptake THORAX: There is a focus of radiotracer within the posterior lateral left mid lung. Image 104, SUV 5. 39. Left peribronchial lymph node uptake is present, image 92, SUV 4.8. There is an infrahilar small lymp h node with abnormal uptake, image 94, SUV 5.42. Some smaller peribronchial lymph nodes have be prese nt. Left infrahilar lymph nodes have abnormal uptake, image 98, SUV 9.86, image 102, SUV 5.41. ABDOMEN: No abnormal uptake PELVIS: No abnormal uptake OSSEOUS STRUCTURES: No abnormal uptake LOCALIZATION CT: There is areas of sclerosis within the lumbar lower thoracic spine without abnormal uptake. COMPARISON: None IMPRESSION: 1. Uptake within a small nodule within the posterior left lung suspicious for neoplasm. 2. There are multiple high intensity areas within the left hilar and mediastinum lymph nodes speciali st for metastatic disease. 3. No suspicious uptake below the diaphragm. [facility], , 02/03/2025 3:12 PM
== END | disposition home or self-care (01) ==
LOC: RADPETMAIN 10:31
PROVIDERS: ATTEND Internal Medicine
DX: R91.1 Solitary pulmonary nodule (principal); R93.89 Abnormal findings on diagnostic imaging of other specified body structures
CPT/HCPCS: 78815; A9552